=== PATIENT | female | born 1930 | race Caucasian/White ===

== ENCOUNTER 2017-02-09 16:30 | Inpatient (IN) | payer MEDICARE, OTHER ==
[~2017-02-09] VITALS: Ht 165.1 cm; Wt 61.8 kg
[~2017-02-09 16:30] MED LIST: CALC600T12 PO; CHOL100047 PO; FISH1CAP51 PO; HERB1CAP2 PO; LEVO50TA69 PO; LOSA1TAB28 PO; NAPR220T PO; PROC-14 PO; QUET25TA PO; RIVA1PAT3 TD; SIMV20TA2 PO; THIO100C3 PO; UBID100C10 PO; [UNRECOGNIZED DRUG - CODE] PO
--- OUTSIDE RECORDS SUMMARY | 2017-02-09 16:34 | XMS REPORT | Continuity of Care Document ---
Author Author [facility] Organization [facility] Address Unknown Phone Unavailable Support Name Relationship Address Phone NILDA PEDRAZA MD Caregiver [address] [place] [address] Unavailable ASIM RUBI DO Caregiver [address] [place] [address] Unavailable JOHNNY GRIFFITHS Next Of Kin [address] [place] [address] Insurance Providers Guarantor Froilan Griffiths Address [address] [place] [address] Email DENIED/NO TO PT PORT/NO EMAIL Payer [place] Policy Number [id number] Subscriber's Name Froilan Griffiths Relationship 18 Self Group Number [id number] Effective Date 94 Payer Medicare Policy Number [id number] Subscriber's Name Froilan Griffiths Relationship [id number] Self Effective Date 94 Chief Complaint and Reason for Visit Chief Complaint Chest Pain Reason for Visit Abdominal pain Chest pain Problems Active Problems Medical Problem Onset Date Status Abnormal finding on urinalysis Unknown Acute Head injury Unknown Acute Ketonuria Unknown Acute Ketonuria Unknown Acute Mild dehydration Unknown Acute Minor head injury Unknown Acute Scalp laceration Unknown Acute Scalp laceration Unknown Acute Subarachnoid hemorrhage following injury with open intracranial wound Unknown Acute Urinary Tract Infection not otherwise specified Unknown Acute Viral gastroenteritis Unknown Acute Vomiting Unknown Acute Past Problems Medical Problem Onset Date Abdominal pain Unknown Chest pain Unknown Cyclic vomiting syndrome Unknown Medications Current Home Medications Medication Dose Units Route Directions Days Qty Instructions Start Date Calcium Carbonate (Calcium) 600 Mg Tablet 1,200 Mg Oral Daily Cholecalciferol (Vitamin D3) (Vitamin D) 1,000 Unit Tablet 1,000 Unit Oral Daily 02/24/15 Herbal Drugs (Colon Herbal Cleanser) 1 Each Capsule 4 Cap Oral Daily 02/03/16 Levothyroxine Sodium (Synthroid) 50 Mcg Tablet 50 Mcg Oral Before Breakfast 07/08/12 Losartan/Hydrochlorothiazide (Hyzaar 50/12.5 Tablet) 1 Tab Tablet 1 Tab Oral Daily 12/07/11 Naproxen Sodium (Naproxen 220MG) 220 Mg Tablet 220 Mg Oral Twice Daily With Meals 11/04/16 [place]-3 Fatty Acids/Fish Oil ([place] 3 Fish Oil Softgel) 1 Each Capsule. 1 Cap Oral Daily 02/15/15 Prochlorperazine Maleate (Compazine) 10 Mg Tablet 10 Mg Oral Four Times Daily 30 Tablet 11/15/16 Quetiapine Fumarate (Seroquel) 25 Mg Tablet 25 Mg Oral Bedtime Quinine Sulfate 324 Mg Capsule 300 Mg Oral Bedtime 07/08/12 Rivastigmine (Exelon Patch) 9.5 Mg Patch 1 Patch Transderm Daily 07/05/12 Simvastatin (Zocor) 20 Mg Tablet 20 Mg Oral Daily 02/15/15 Thioctic Acid (Alpha Lipoic Acid) 100 Mg Capsule 200 Mg Oral Daily 12/07/11 Ubidecarenone (Coq-10) 100 Mg Capsule 200 Mg Oral Daily 02/24/15 Past Home Medications Medication Directions Ordered Status Ascorbic Acid (Vitamin C) 500 Mg Tablet, 1 - 2 Tab Oral Daily 05/24/10 Discontinued Aspirin 81 Mg Tablet, 81 Mg Oral Daily 05/24/10 Discontinued Calcium/Magnesium (Calcium W/Magnesium Tablet) 1 Tab Tablet, 1 Tab Oral Daily 05/24/10 Discontinued Chromium Picolinate 200 Mcg Tablet, 1 Tab Oral Daily 05/24/10 Discontinued Cyanocobalamin (Vitamin B-12) 500 Mcg Tablet.sa, 1 Tab Sublingual Daily 05/24 Discontinued Fexofenadine Hcl (Patti) 180 Mg Tablet, 300 Mg Oral Daily 12/07/11 Discontinued Folic Acid 0.4 Mg Tablet, 1 Tab Oral Daily 05/24/10 Discontinued Levothyroxine Sodium (Synthroid) 25 Mcg Tablet, 25 Mcg Oral Daily 12/07/11 Discontinued Levothyroxine Sodium (Synthroid) 50 Mcg Tablet, 1 Tab Oral Daily 05/24/10 Discontinued Meclizine Hcl 12.5 Mg Tablet, 12.5 Mg Oral as needed 07/08/12 Discontinued Methocarbamol (Robaxin) 750 Mg Tablet, 750 Mg Dobhoff Prn Every 6HOURS Discontinued [place]-3 Fatty Acids (Fish Oil Concentrate) 1 Cap Capsule, 1 Cap Oral Daily Discontinued Potassium (Potassimin) 75 Mg Tablet, 75 Mg Oral Daily 05/24/10 Discontinued Quetiapine Fumarate 25 Mg Tablet, 1 Tab Oral Bedtime 02/15/15 Discontinued Quinine Sulfate 324 Mg Capsule, 324 Mg Oral Bedtime 12/07/11 Discontinued Rivastigmine Tartrate (Exelon) 4.5 Mg Capsule, 1 Tab Oral Twice A Day Discontinued Simvastatin 20 Mg Tablet, 20 Mg Oral Daily 05/24/10 Discontinued Telmisartan (Micardis) 80 Mg Tablet, 80 Mg Oral Daily 05/24/10 Discontinued Tetracycline Hcl 250 Mg Capsule, 250 Mg Oral Daily 05/24/10 Discontinued Valsartan/Hydrochlorothiazide (Diovan Hct 160/25 Mg Tablet) 1 Tab Tablet, 0.5 Tab Oral Daily 10/02/08 Discontinued Vitamin E 1000 Unit Capsule, 1 Tab Oral Daily 05/24/10 Discontinued Vitamins A And D (Vitamin A And D) 1 Tab Tablet, 1 Tab Oral Daily 05/24/10 Discontinued Social History Social History Problem Response Recorded Date/Time Onset Date Status Chewing Tobacco Status No 01/16/2014 5:10pm Not Applicable Not Applicable Hx Substance Use No 11/15/2016 5:16am Not Applicable Not Applicable Hx Alcohol Use No 11/15/2016 5:16am Not Applicable Not Applicable Has the pt used tobacco in the last 12 months No 07/08/2012 4:17pm Not Applicable Not Applicable Tobacco Usage none 01/16/2014 5:45pm Not Applicable Not Applicable Query Response Start Date Stop Date Smoking Status Never smoker Hospital Discharge Instructions No hospital discharge instructions. Plan of Care Discharge Date 11/15/16 7:15am Disposition 01 DISCHARGED HOME, SELF-CARE Condition at Discharge Improved Instructions/Education Provided High Blood Pressure Nausea and Vomiting-Adult Prescriptions See Medication Section Referrals ASIM RUBI DO Address: [address] [place] [phone] Additional Instructions/Education Follow-up with Dr. Rubi. Return to the emergency department if symptoms worsen. Functional Status No functional status results. Allergies, Adverse Reactions, Alerts Allergen Type Severity Reaction Status Last Updated Penicillin Allergy Unknown HIVES Active 11/15/16 Sulfa (Sulfonamide Antibiotics) Adverse Reaction Unknown DIZZINESS Active 11/15/16 Soy Adverse Reaction Unknown SORE MOUTH Active 11/15/16 Dextrose Allergy Unknown Active 11/15/16 Codeine Adverse Reaction Unknown NAUSEA, DIZZINESS Active 11/15/16 Hydrocodone Allergy Unknown Active 11/15/16 Cephalexin Adverse Reaction Unknown YEAST INFECTION Active 11/15/16 Neomycin Allergy Unknown RASH, ITCHING Active 11/15/16 Bacitracin Allergy Unknown RASH, ITCHING Active 11/15/16 gramicidin D Allergy Unknown RASH, ITCHING Active 11/15/16 Lincomycin Adverse Reaction Unknown COLITIS Active 11/15/16 Polymyxin b Allergy Unknown RASH, ITCHING Active 11/15/16 Moxifloxacin Adverse Reaction Unknown DIZZINESS, NAUSEA Active 11/15/16 Immunizations Query Response on File Recorded Date/Time Hx Influenza Vaccination Y fall 201305/24/15 11:58pm Hx Pneumococcal Vaccination Y 201205/24/15 11:58pm Hx Influenza Vaccination Y fall 201305/24/15 11:58pm Hx Tetanus Diptheria No 03/01/16 11:18am Hx Tetanus Toxoid Vaccination Yes 03/01/16 11:18am Influenza Vaccine Hx fall 201511/15/16 5:16am Tdap Vaccine Hx 201503/01/16 11:18am Vital Signs Acute Vital Signs Vital Response Date/Time Temperature (Fahrenheit) 97.7 deg F (96.8 - 99.1) 11/15/2016 5:13am Temperature (Calculated Celsius) 36.13809 degrees C (36.0 - 37.3) 11/15/2016 5:13am Pulse Rate (adult) 69 bpm (60 - 100) 11/15/2016 8:03am Respiratory Rate 18 breaths/min (10 - 20) 11/15/2016 8:03am O2 Sat by Pulse Oximetry 100 % (90 - 100) 11/15/2016 8:03am Blood Pressure 161/80 mm Hg 11/15/2016 8:03am Height (Feet) 5 feet 11/15/2016 5:13am Height (Inches) 5.00 inches 11/15/2016 5:13am Weight (Kilograms) 70.000 kg 11/15/2016 5:13am Body Mass Index (BMI) 25.0 11/15/2016 5:13am Results Laboratory Results Test Name Result Units Flags Reference Collection Date/Time Result Date/ Time Comments Urine Collection Type CLEANCATCH-MIDSTREAM 11/04/2016 4:50am 2016 4:54am Urine Color YELLOW YELLOW 11/04/2016 4:50am 11/04/2016 4:54am Urine Turbidity CLEAR CLEAR 11/04/2016 4:50am 11/04/2016 4:54am Urine Specific [place] 1.010 L 1.015-1.025 11/04/2016 4:50am 2016 4:54am Urine pH 7.0 5.0-8.0 11/04/2016 4:50am 11/04/2016 4:54am Urine Leukocyte Esterase TRACE A NEGATIVE 11/04/2016 4:50am 2016 4:54am Urine Nitrite NEGATIVE NEGATIVE 11/04/2016 4:50am 11/04/2016 4:54am Urine Protein NEGATIVE NEGATIVE 11/04/2016 4:50am 11/04/2016 4:54am Urine Glucose (UA) NEGATIVE NEGATIVE 11/04/2016 4:50am 11/04/2016 4: 54am Urine Ketones NEGATIVE NEGATIVE 11/04/2016 4:50am 11/04/2016 4:54am Urine Urobilinogen 0.2 EU/DL NORMAL 11/04/2016 4:50am 11/04/2016 4: 54am Urine Bilirubin NEGATIVE NEGATIVE 11/04/2016 4:50am 11/04/2016 4: 54am Urine Blood NEGATIVE NEGATIVE 11/04/2016 4:50am 11/04/2016 4:54am Urinalysis Comment MICROSCOPIC NOT IND. 11/04/2016 4:50am 2016 4:54am White Blood Count 5.2 T/MM3 4.5-11.0 11/15/2016 5:30am 11/15/2016 5: 54am Red Blood Count 3.69 M/MM3 L 4.00-5.20 11/15/2016 5:30am 11/15/2016 5: 54am Hemoglobin 12.3 GM/DL 12-16 11/15/2016 5:30am 11/15/2016 5:54am Hematocrit 36.8 % 36-46 11/15/2016 5:30am 11/15/2016 5:54am Mean Corpuscular Volume 99.7 UM3 80-100 11/15/2016 5:30am 11/15/2016 5: 54am Mean Corpuscular Hemoglobin 33.3 UUG 26-34 11/15/2016 5:302016 5:54am Mean Corpuscular Hemoglobin Concent 33.4 GM/DL 31-37 11/15/2016 5:3011/15/2016 5:54am RDW Standard Deviation 44.5 FL 36.9-50.2 11/15/2016 5:3011/15/2016 5 :54am Platelet Count 168 T/MM3 130-400 11/15/2016 5:3011/15/2016 5:54am Mean Platelet Volume 10.4 UM3 9.4-12.4 11/15/2016 5:3011/15/2016 5: 54am Neutrophils (%) (Auto) 66.2 % H 33-66 11/15/2016 5:11/15/2016 5: 54am Lymphocytes (%) (Auto) 9.8 % L 23-45 11/15/2016 5:3011/15/2016 5: 54am Monocytes (%) (Auto) 8.1 % 0-9.0 11/15/2016 5:3011/15/2016 5:54am Eosinophils (%) (Auto) 14.9 % H 0-4 11/15/2016 5:3011/15/2016 5:54am Basophils (%) (Auto) 0.6 % 0-2 11/15/2016 5:11/15/2016 5:54am Immature Granulocyte % (Auto) 0.4 % 0.0-0.5 11/15/2016 5:302016 5:54am Absolute Neutrophils (auto) 3.4 T/MM3 1.8-7.7 11/15/2016 5:302016 5:54am Absolute Lymphocytes (auto) 0.5 T/MM3 L 1-4.8 11/15/2016 5:302016 5:54am Absolute Monocytes (auto) 0.4 T/MM3 0-0.8 11/15/2016 5:3011/15/2016 5:54am Absolute Eosinophils (auto) 0.8 T/MM3 H 0-0.5 11/15/2016 5:302016 5:54am Absolute Basophils (auto) 0.0 T/MM3 0-0.2 11/15/2016 5:30am 11/15/2016 5:54am Absolute Immature Granulocyte (auto 0.02 T/MM3 0.00-0.03 11/15/2016 5: 3011/15/2016 5:54am Icterus Index < 2 0-7 11/15/2016 5:30am 11/15/2016 5:52am Chemistry Specimen Hemolysis 28 H 0-25 11/15/2016 5:3011/15/2016 5: 52am 26-70: Specimen Exhibited Slight Hemolysis - can falsely elevate K (Potassium) and Urine Protein. Turbidity < 20 0-20 11/15/2016 5:3011/15/2016 5:52am Sodium Level 133 MEQ/L L 134-144 11/15/2016 5:3011/15/2016 5:52am Potassium Level 4.1 MEQ/L 3.6-5 11/15/2016 5:30am 11/15/2016 5:52am Chloride Level 94 MEQ/L L 98-107 11/15/2016 5:3011/15/2016 5:52am Carbon Dioxide Level 27 MEQ/L 22-30 11/15/2016 5:30am 11/15/2016 5: 52am Anion Gap 12 MEQ/L 5-15 11/15/2016 5:3011/15/2016 5:52am Blood Urea Nitrogen 22.0 MG/DL H 7-17 11/15/2016 5:30am 11/15/2016 5: 52am Creatinine 1.0 MG/DL 0.7-1.2 11/15/2016 5:3011/15/2016 5:52am BUN/Creatinine Ratio 22 RATIO 6-26 11/15/2016 5:3011/15/2016 5:52am Glomerular Filtration Rate Calc 52 11/15/2016 5:3011/15/2016 5: 52am Glucose Level 102 MG/DL 65-110 11/15/2016 5:3011/15/2016 5:52am Calculated Osmolality 259 MOSM/KG L 261-280 11/15/2016 5:30am 2016 5:52am Calcium Level 9.5 MG/DL 8.4-10.2 11/15/2016 5:30am 11/15/2016 5:52am Total Bilirubin 0.60 MG/DL 0.20-1.30 11/15/2016 5:30am 11/15/2016 5: 52am Alkaline Phosphatase 63 U/L 38-126 11/15/2016 5:30am 11/15/2016 5:52am Total Protein 7.0 G/DL 6.3-8.2 11/15/2016 5:30am 11/15/2016 5:52am Albumin 3.9 G/DL 3.5-5.0 11/15/2016 5:30am 11/15/2016 5:52am Globulin 3.1 G/DL 2.4-3.6 11/15/2016 5:30am 11/15/2016 5:52am Albumin/Globulin Ratio 1.3 RATIO 1.1-2.2 11/15/2016 5:30am 11/15/2016 5 :52am Aspartate Amino Transf (AST/SGOT) 30 U/L 14-36 11/15/2016 5:30am 2016 5:52am Alanine Aminotransferase (ALT/SGPT) 31 U/L 9-52 11/15/2016 5:30am 11/15 5:52am Troponin I < 0.012 ng/ml 0-0.12 11/15/2016 5:30am 11/15/2016 6:04am Troponin values with a difference of 55% increase from orginal troponin value represent a true biological DELTA value. (%increase Calc=Orginal Troponin value, divided by subsequent Troponin value, multiplied by 100) Lipase 71 U/L 23-300 11/15/2016 5:30am 11/15/2016 5:52am Procedures Procedure Status Date Provider(s) COMP SCREEN MAMMOGRAM ADD-ON Completed 10/23/16 Breast tomosynthesis bi Completed 10/23/16 354851"SCREENING MAMMOGRAPHY, PRODUCING DIRECT DIGITAL IMAGE Completed Routine venipuncture Completed 11/04/16 Comprehen metabolic panel Completed 11/04/16 Urinalysis auto w/o scope Completed 11/04/16 Assay of troponin quant Completed 11/04/16 Complete cbc w/auto diff wbc Completed 11/04/16 Electrocardiogram tracing Completed 11/04/16 Hydration iv infusion init Completed 11/04/16 Emergency dept visit Completed 11/04/16 048217"INFUSION, NORMAL SALINE SOLUTION , 1000 CC" Completed 11/04/16 Encounters Encounter Location Arrival/Admit Date Discharge/Depart Date Attending Provider Departed Emergency Room [facility] 11/15/16 4:57am 11/15/16 7: 15am NILDA PEDRAZA MD Departed Emergency Room [facility] 11/04/16 2:10am 11/04/16 5: 25am ASIM GALVAN MD Registered Clinic [facility] 10/23/16 1:04pm LAURIE ANAND Recent Diagnosis
--- OUTSIDE RECORDS SUMMARY | 2017-02-09 16:34 | XMS REPORT | Continuity of Care Document ---
Author Author [facility] LIVE Organization [facility] LIVE Address Unknown Phone Unavailable Support Name Relationship Address Phone BENTON HERNANDEZ MD Caregiver [address] [place] [address] [place] [phone] ASIM RUBI DO Caregiver [facility] MEDICINE [address] [facility] [address] [place] [phone] JOHNNY GRIFFITHS Next Of Kin [address] [place], [place] [id number] Insurance Providers Payer Name Policy Number Subscriber Name Relationship Medicare [id number] Froilan Griffiths 17 Self [place] [id number] Froilan Griffiths 17 Self Advance Directives Directive Response Recorded Date/Time Advanced Directives Type None 02/15/15 3:03pm Problems Medical Problems Problem Onset Date Status Urinary Tract Infection not otherwise specified Unknown Active Ketonuria Unknown Active Mild dehydration Unknown Active Vomiting Unknown Active Ketonuria Unknown Active Medications Medication Dose Route Sig Days/Qty Instructions Order Date Discontinued Date Status Calcium/Magnesium 1 Tab PO DAILY 05/24/10 12/07/11 Discontinued Chromium Picolinate 1 Tab PO DAILY 05/24/10 12/07/11 Discontinued [Colon Clenz] 4 Tab PO NEEDED buys form the [employer] Active Valsartan/Hydrochlorothiazide 0.5 Tab PO DAILY 10/02/08 10/30/09 Discontinued Rivastigmine Tartrate 1 Tab PO TWICE A DAY 05/24/10 07/05/12 Discontinued [place]-3 Fatty Acids 1 Cap PO DAILY 05/24/10 12/07/11 Discontinued Folic Acid 1 Tab PO DAILY 05/24/10 12/07/11 Discontinued Levothyroxine Sodium 1 Tab PO DAILY 05/24/10 12/07/11 Discontinued Vitamins A And D 1 Tab PO DAILY 05/24/10 12/07/11 Discontinued Cyanocobalamin 1 Tab SL DAILY 05/24/10 12/07/11 Discontinued Ascorbic Acid 1 - 2 Tab PO DAILY 05/24/10 12/07/11 Discontinued [Vitamin E] 1 Tab PO DAILY 05/24/10 12/07/11 Discontinued Aspirin 81 Mg PO DAILY 05/24/10 12/07/11 Discontinued Telmisartan 80 Mg PO DAILY 05/24/10 12/07/11 Discontinued Potassium 75 Mg PO DAILY 05/24/10 12/07/11 Discontinued Simvastatin 20 Mg PO DAILY 05/24/10 06/26/12 Discontinued Tetracycline Hcl 250 Mg PO DAILY 05/24/10 12/07/11 Discontinued Levothyroxine Sodium 25 Mcg PO DAILY 12/07/11 07/08/12 Discontinued Losartan/Hydrochlorothiazide 1 Tab PO DAILY 12/07/11 Active Fexofenadine Hcl 300 Mg PO DAILY 12/07/11 07/04/13 Discontinued Quinine Sulfate 324 Mg PO BEDTIME 12/07/11 07/08/12 Discontinued Thioctic Acid 2 Tab PO DAILY 12/07/11 Active Methocarbamol 750 Mg PRN EVERY 6HOURS 06/26/12 07/08/12 Discontinued Rivastigmine 1 Tab TD DAILY 07/05/12 Active Levothyroxine Sodium 1 Tab PO DAILY 07/08/12 Active Quinine Sulfate 1 Tab PO BEDTIME 07/08/12 Active Meclizine Hcl 12.5 Mg PO PRN 07/08/12 07/04/13 Discontinued Quetiapine Fumarate 1 Tab PO BEDTIME 02/15/15 Active Simvastatin 1 Tab PO BEDTIME 02/15/15 Active [place]-3 Fatty Acids/Fish Oil 1 Cap PO DAILY 02/15/15 Active Aspirin 1 Tab PO DAILY 02/15/15 Active Calcium Carbonate/Vitamin D3 1 Tab PO DAILY 02/15/15 Active Ondansetron 4 Mg PO Q6H/0300,0900,1500,2100 PRN NAUSEA &/OR VOMITING 20 Qty 02/15/15 Active Social History Social History Problem Response Recorded Date/Time Chewing Tobacco Status No 01/16/2014 5:10pm Hx Substance Use No 02/15/2015 3:44pm Hx Alcohol Use No 02/15/2015 3:44pm Has the pt used tobacco in the last 12 months No 07/08/2012 4:17pm Tobacco Usage none 01/16/2014 5:45pm Query Response Start Date Stop Date Smoking Status Never smoker Hospital Discharge Instructions No hospital discharge instructions. Plan of Care No plan of care. Functional Status Query Response Date Recorded Physical Hygiene Self February 15, 2015 3:44pm Disabilities None February 15, 2015 3:44pm Devices Used Glasses February 15, 2015 3:44pm Dressing Self February 15, 2015 3:44pm Ambulation Self February 15, 2015 3:44pm Diet Self February 15, 2015 3:44pm Mental Status Alert Oriented February 15, 2015 5:30pm Disabilities None February 15, 2015 3:44pm Devices Used Glasses February 15, 2015 3:44pm Physical Hygiene Self February 15, 2015 3:44pm Dressing Self February 15, 2015 3:44pm Ambulation Self February 15, 2015 3:44pm Diet Self February 15, 2015 3:44pm Allergies, Adverse Reactions, Alerts Allergen Type Severity Reaction Status Last Updated Penicillin Allergy Unknown HIVES Active 07/05/12 Sulfa (Sulfonamide Antibiotics) Adverse Reaction Unknown DIZZINESS Active 07/05/12 Soy Adverse Reaction Unknown SORE MOUTH Active 07/04/13 Codeine Adverse Reaction Unknown NAUSEA, DIZZINESS Active 07/05/12 Hydrocodone Allergy Unknown Active 07/05/12 Cephalexin Adverse Reaction Unknown YEAST INFECTION Active 07/05/12 Neomycin Allergy Unknown RASH, ITCHING Active 07/05/12 Bacitracin Allergy Unknown RASH, ITCHING Active 07/05/12 gramicidin D Allergy Unknown RASH, ITCHING Active 07/05/12 Lincomycin Adverse Reaction Unknown COLITIS Active 07/05/12 Polymyxin b Allergy Unknown RASH, ITCHING Active 07/05/12 Moxifloxacin Adverse Reaction Unknown DIZZINESS, NAUSEA Active 07/04/13 Immunizations Name Given Type Hx Influenza Vaccination Y FALL 2013 Historical Hx Pneumococcal Vaccination Y CURRENT Historical Hx Influenza Vaccination Y FALL 2013 Historical Hx Tetanus Diptheria Y GIVEN IN ER TODAY 10/02/08 AT 2008 IN LEFT ARM Historical Vital Signs Acute Vital Signs Vital Response Date/Time Temperature (Fahrenheit) 96.8 deg F (96.8 - 99.1) Temperature (Calculated Celsius) 36.33476 degrees C (36.0 - 37.3) Pulse Rate (adult) 78 bpm (60 - 100) Respiratory Rate 20 breaths/min (10 - 20) O2 Sat by Pulse Oximetry 98 % (90 - 100) Blood Pressure 162/72 mm Hg Height 5 ft 5 in Weight 150 lb Body Mass Index 25.0 kg/m^2 Results Test Source Date Result Interp. Ref. Range Comments Activated Partial Thromboplast Time July 05, 2012 6:30am 23.2 SEC L 24-36 Alanine Aminotransferase (ALT/SGPT) February 15, 2015 3:30pm 34 U/L N 9-52 Albumin February 15, 2015 3:30pm 4.2 G/DL N 3.5-5.0 Albumin/Globulin Ratio February 15, 2015 3:30pm 1.2 RATIO N 1.1-2.2 Alkaline Phosphatase February 15, 2015 3:30pm 58 U/L N 38-126 Amylase Level February 15, 2015 3:30pm 80 U/L N 30-110 Anion Gap February 15, 2015 3:30pm 12 MEQ/L N 5-15 Aspartate Amino Transf (AST/SGOT) February 15, 2015 3:30pm 41 U/L H 14-36 B-Type Natriuretic Peptide October 30, 2009 3:35am 46 PG/ML N 15-100 BUN/Creatinine Ratio February 15, 2015 3:30pm 24 RATIO N 6-26 Band Neutrophils # February 15, 2015 3:30pm 0.2 T/MM3 - Band Neutrophils % February 15, 2015 3:30pm 2.0 % DN 0-6 Basophils # (Auto) July 05, 2012 6:30am 0.0 T/MM3 N 0-0.2 Basophils # (Manual) October 30, 2009 3:35am 0.2 T/MM3 N 0-0.2 Basophils % (Manual) October 30, 2009 3:35am 1.0 % N 0-2 Basophils (%) (Auto) July 05, 2012 6:30am 0.4 % N 0-2 Blood Urea Nitrogen February 15, 2015 3:30pm 22.0 MG/DL H 7-17 Calcium Level February 15, 2015 3:30pm 9.2 MG/DL N 8.4-10.2 Calculated Osmolality February 15, 2015 3:30pm 274 MOSM/KG N 261-280 Carbon Dioxide Level February 15, 2015 3:30pm 27 MEQ/L N 22-30 Chemistry Specimen Hemolysis February 15, 2015 3:30pm 20 N 0-25 0-25: No Hemolysis.26-70: Slight Hemolysis - can falsely elevate K and Urine Protein. 71-285: Moderate Hemolysis - can falsely elevate K, Troponin I, CA 19-9, PTH, CSF GLucose, and Urine Protein, and can falsely decrease Phenytoin. 286-999: Gross Hemolysis - can falsely elevate K, Troponin I, CA 19-9, PTH, CSF Glucose, and Urine Protine, and can falsely decrease Phenytoin. Recommend specimen recollection. Chloride Level February 15, 2015 3:30pm 102 MEQ/L N 98-107 Conjugated Bilirubin December 07, 2011 12:54pm 0.00 MG/DL N 0.00-0.30 Creatinine February 15, 2015 3:30pm 0.9 MG/DL N 0.7-1.2 EKG October 30, 2009 3:35am Complete - Eosinophils # (Auto) July 05, 2012 6:30am 0.3 T/MM3 N 0-0.5 Eosinophils (%) (Auto) July 05, 2012 6:30am 5.2 % H 0-4 Globulin February 15, 2015 3:30pm 3.5 G/DL N 2.4-3.6 Glomerular Filtration Rate Calc February 15, 2015 3:30pm 59 - Glucose Level February 15, 2015 3:30pm 96 MG/DL N 65-110 Hematocrit February 15, 2015 3:30pm 42.7 % N 36-46 Hemoglobin February 15, 2015 3:30pm 14.2 GM/DL N 12-16 Icterus Index February 15, 2015 3:30pm < 2 0-7 Immature Granulocyte # (Auto) July 05, 2012 6:30am 0.02 T/MM3 N 0.00-0.03 Immature Granulocyte % (Auto) July 05, 2012 6:30am 0.4 % N 0.0-0.5 Lab Scanned Report December 31, 2013 9:34pm LAB TEST FORM REQUEST [id number] - Lipase February 15, 2015 3:30pm 152 U/L N 23-300 Lymphocytes # (Auto) July 05, 2012 6:30am 1.0 T/MM3 N 1-4.8 Lymphocytes # (Manual) February 15, 2015 3:30pm 0.2 T/MM3 L 1-4.8 Lymphocytes % (Manual) February 15, 2015 3:30pm 2.0 % L 23-45 Lymphocytes (%) (Auto) July 05, 2012 6:30am 19.7 % L 23-45 Mean Corpuscular Hemoglobin February 15, 2015 3:30pm 33.9 UUG N 26-34 Mean Corpuscular Hemoglobin Concent February 15, 2015 3:30pm 33.3 GM/DL N 31-37 Mean Corpuscular Volume February 15, 2015 3:30pm 101.9 UM3 H 80-100 Mean Platelet Volume February 15, 2015 3:30pm 9.3 UM3 L 9.4-12.4 Monocytes # (Auto) July 05, 2012 6:30am 0.6 T/MM3 N 0-0.8 Monocytes # (Manual) February 15, 2015 3:30pm 0.3 T/MM3 N 0-0.8 Monocytes % (Manual) February 15, 2015 3:30pm 3.0 % N 0-9.0 Monocytes (%) (Auto) July 05, 2012 6:30am 13.3 % H 0-9.0 Neutrophils # (Auto) July 05, 2012 6:30am 3.0 T/MM3 N 1.8-7.7 Neutrophils # (Manual) February 15, 2015 3:30pm 9.5 T/MM3 H 1.8-7.7 Neutrophils % (Manual) February 15, 2015 3:30pm 93.0 % H 33-66 Neutrophils (%) (Auto) July 05, 2012 6:30am 61.0 % N 33-66 Platelet Count February 15, 2015 3:30pm 238 T/MM3 N 130-400 Potassium Level February 15, 2015 3:30pm 4.1 MEQ/L N 3.6-5 Prothromb Time International Ratio July 05, 2012 6:30am 0.84 L 0.86 -1.10 THERAPUTIC RANGE=2.00-3.00 FOR ANTI-THROMBOSIS THERAPUTIC RANGE=2.50- 3.50 FOR IMPLANTED VALVE RDW Standard Deviation February 15, 2015 3:30pm 45.5 FL N 36.9-50.2 Red Blood Count February 15, 2015 3:30pm 4.19 M/MM3 N 4.00-5.20 Red Cell Morphology Comment February 15, 2015 3:30pm Normal - Sodium Level February 15, 2015 3:30pm 141 MEQ/L N 134-144 Tests Not Done October 30, 2009 4:30am Not done - Has specimen been collected/obtained? Y Total Bilirubin February 15, 2015 3:30pm 0.90 MG/DL N 0.20-1.30 Total Protein February 15, 2015 3:30pm 7.7 G/DL N 6.3-8.2 Troponin I July 05, 2012 6:30am < 0.012 ng/ml 0-0.12 Turbidity February 15, 2015 3:30pm < 20 0-20 Unconjugated Bilirubin December 07, 2011 12:54pm 0.20 MG/DL N 0.00-1.10 Urinalysis Comment February 15, 2015 5:00pm Microscopic not ind. - Has specimen been collected/obtained? Y Urine Bacteria July 04, 2013 3:23pm Trace H - Has specimen been collected/obtained? Y Urine Bilirubin February 15, 2015 5:00pm Negative - Has specimen been collected/obtained? Y Urine Blood February 15, 2015 5:00pm Negative - Has specimen been collected/obtained? Y Urine Collection Type February 15, 2015 5:00pm Cleancatch-midstream - Has specimen been collected/obtained? Y Urine Color February 15, 2015 5:00pm Yellow - Has specimen been collected/obtained? Y Urine Culture Indicated July 04, 2013 3:23pm Cult reflexed &setup - Has specimen been collected/obtained? Y Urine Glucose (UA) February 15, 2015 5:00pm Negative - Has specimen been collected/obtained? Y Urine Ketones February 15, 2015 5:00pm Trace H - Has specimen been collected/obtained? Y Urine Leukocyte Esterase February 15, 2015 5:00pm Negative - Has specimen been collected/obtained? Y Urine Microscopic Not Indicated July 05, 2012 6:55am Not indicated - Has specimen been collected/obtained? Y Urine Nitrite February 15, 2015 5:00pm Negative - Has specimen been collected/obtained? Y Urine Protein February 15, 2015 5:00pm Negative - Has specimen been collected/obtained? Y Urine RBC July 04, 2013 3:23pm Tntc /HPF H - Has specimen been collected/obtained? Y Urine Specific [place] February 15, 2015 5:00pm >=1.030 H - Has specimen been collected/obtained? Y Urine Squamous Epithelial Cells July 04, 2013 3:23pm None seen - Has specimen been collected/obtained? Y Urine Turbidity February 15, 2015 5:00pm Clear - Has specimen been collected/obtained? Y Urine Urobilinogen February 15, 2015 5:00pm 0.2 EU/DL - Has specimen been collected/obtained? Y Urine WBC July 04, 2013 3:23pm 30-50 /HPF H - Has specimen been collected/obtained? Y Urine pH February 15, 2015 5:00pm 6.0 - Has specimen been collected/ obtained? Y White Blood Count February 15, 2015 3:30pm 10.2 T/MM3 N 4.5-11.0 Urine Culture Urine, Clean Catch-Midstream July 04, 2013 3:41pm Mixed [place] Prob. Contaminants Name: FROILAN GRIFFITHS Unit #: [id number] : 1930 Sex: F Loc / Svc: [facility] DOS: 01/28/15 Signed Report #: [id number] DIAGNOSTIC IMAGING REPORT TYPE OF EXAM: EPIDURAL INJ.SPINE W FLUO&CATH Dictated By: OLGA FULLER MD Indication: ITS.REASON: 724.02 LUMBAR SPINAL STENOSIS; 724.5 BACKACHE EPIDURAL INJ.SPINE W FLUO CATH: Comparison: 11/18/2014 Findings: The procedure was explained to the patient and both verbal and written consent were obtained. The skin over the lumbar spine was prepped and draped in the usual sterile fashion. Following local anesthetic placement a 22-gauge spinal needle was placed into the epidural space under fluoroscopic guidance at the L3-L4 level, left of the midline. Once it was confirmed at the needle was in the epidural space with a small amount of contrast, 5 cc of Omnipaque 180 , 120 mg of Depo-Medrol was infused into the epidural space under fluoroscopic guidance. The needle was removed and manual pressure was held until adequate hemostasis was achieved. The patient tolerated the procedure well and there are no immediate complications. Impression 1. Status post successful lumbar epidural as described above under fluoroscopic guidance. . Procedures Procedure Status Date Provider(s) INJECT SPINE LUMBAR/SACRAL completed 11/18/14 FLUOROGUIDE FOR SPINE INJECT completed 11/18/14 825255"INJECTION, METHYLPREDNISOLONE ACETATE, 40 MG" completed 11/18/14"LOW OSMOLAR CONTRAST MATERIAL, 100-199 MG/ML IODINE C completed INJECT SPINE LUMBAR/SACRAL completed 01/28/15 FLUOROGUIDE FOR SPINE INJECT completed 01/28/15"INJECTION, METHYLPREDNISOLONE ACETATE, 40 MG" completed 01/28/15"LOW OSMOLAR CONTRAST MATERIAL, 100-199 MG/ML IODINE C completed Encounters Encounter Location Date/Time Departed Emergency Room [facility] 02/15/15 3:01pm Registered Clinic [facility] 01/28/15 9:18am Registered [facility] 11/18/14 12:20pm Recent Diagnosis
[2017-02-09] MEDS ORDERED: PANT40TA27 PO (16:49)
[2017-02-09] MEDS ORDERED: NAPR375T4 PO (16:49)
[2017-02-09] MEDS ORDERED: TRAM50TA4 PO (16:49)
[2017-02-09] MEDS ORDERED: ACET-62 PO (16:58)
--- OUTSIDE RECORDS SUMMARY | 2017-02-09 17:07 | XMS REPORT | Continuity of Care Document ---
Author Author [facility] LIVE Organization [facility] LIVE Address Unknown Phone Unavailable Support Name Relationship Address Phone BENTON HERNANDEZ MD Caregiver [address] [place] [address] [place] [phone] ASIM RUBI DO Caregiver [facility] MEDIC[facility] [address] [facility] [address] [place] [phone] JOHNNY GRIFFITHS Next Of Kin [address] [place], [place] [id number] Insurance Providers Payer Name Policy Number Subscriber Name Relationship Medicare [id number] Froilan Griffiths 17 Self [place] [id number] Froilan Griffiths 17 Self Advance Directives Directive [...] 4 Tab PO NEEDED buys form the [employer] Active Valsartan/Hydrochlorothiazide 0.5 Tab PO DAILY 10/02/08 10/30/09 Discontinued Rivastigmine Tartrate 1 Tab PO TWICE A DAY 05/24/10 07/05/12 Discontinued [place]-3 Fatty Acids 1 Cap PO DAILY 05/24/10 [...] Simvastatin 1 Tab PO BEDTIME 02/15/15 Active [place]-3 Fatty Acids/Fish Oil 1 Cap PO DAILY [...] F (96.8 - 99.1) Temperature (Calculated Celsius) 36.12714 degrees C (36.0 - 37.3) Pulse Rate [...] 31, 2013 9:34pm LAB TEST FORM REQUEST [id number] - Lipase February 15, 2015 3:30pm 152 [...] Has specimen been collected/obtained? Y Urine Specific [place] February 15, 2015 5:00pm >=1.030 H - [...] Prob. Contaminants Name: FROILAN GRIFFITHS Unit #: [id number] : 1930 Sex: F Loc / Svc: [facility] DOS: 01/28/15 Signed Report #: [id number] DIAGNOSTIC IMAGING REPORT TYPE OF EXAM: EPIDURAL [...] 11/18/14 FLUOROGUIDE FOR SPINE INJECT completed 11/18/14 [id number]"INJECTION, METHYLPREDNISOLONE ACETATE, 40 MG" completed 11/18/14"LOW OSMOLAR CONTRAST MATERIAL, 100-199 MG/ML IODINE C completed INJECT SPINE LUMBAR/SACRAL completed 01/28/15 FLUOROGUIDE FOR SPINE INJECT completed 01/28/15"INJECTION, METHYLPREDNISOLONE ACETATE, 40 MG" completed 01/28/15"LOW OSMOLAR CONTRAST MATERIAL, 100-199 MG/ML IODINE C completed Encounters Encounter Location Date/Time Departed Emergency Room [facility] 02/15/15 3:01pm Registered Clinic [facility] 01/28/15 9:18am Registered [facility] 11/18/14 12:20pm Recent Diagnosis
[2017-02-09 17:36] LABS: HGB - HEMOGLOBIN 12.3 GM/DL (12-16); MEAN CORPUSCULAR HGB 33.5 UUG (26-34); MEAN CORPUSCULAR HGB CONC(MCHC 33.2 GM/DL (31-37); MEAN CORPUSCULAR VOLUME 100.8 UM3 (80-100); MEAN PLATELET VOLUME 8.9 UM3 (9.4-12.4); RED BLOOD COUNT 3.67 M/MM3 (4.00-5.20); WBC - WHITE BLOOD COUNT 10.1 T/MM3 (4.5-11.0)
[2017-02-09 17:46] LABS: ALBUMIN 3.9 G/DL (3.5-5.0); ALBUMIN/GLOBULIN RATIO 1.1 RATIO (1.1-2.2); ALKALINE PHOSPHATASE 80 U/L (38-126); ALT (SGPT) 26 U/L (9-52); ANION GAP 13 MEQ/L (5-15); AST (SGOT) 35 U/L (14-36); BUN/CREATININE RATIO 18 RATIO (6-26); CALCIUM 9.5 MG/DL (8.4-10.2); CHLORIDE 98 MEQ/L (98-107); CO2 - CARBON DIOXIDE 26 MEQ/L (22-30); CREATININE 1.2 MG/DL (0.7-1.2); GLOMERULAR FILTRATION RATE 42; GLUCOSE 103 MG/DL (65-110); POTASSIUM 4.3 MEQ/L (3.6-5); SODIUM 137 MEQ/L (134-144); TOTAL PROTEIN 7.4 G/DL (6.3-8.2)
[2017-02-09 18:03] LABS: BLOOD, URINE NEGATIVE (NEGATIVE); COLOR,URINE YELLOW (YELLOW); LEUKOCYTE ESTERASE ,URINE NEGATIVE (NEGATIVE); NITRITE,URINE NEGATIVE (NEGATIVE); UROBILINOGEN,URINE 0.2 EU/DL (NORMAL)
--- NOTE | 2017-02-09 18:07 | ERPDOC ---
Departure Disposition Decision Date: Feb 09, 2017 Disposition Decision Time: 18:10 Disposition: 02 TO [facility] Impression Impression Impression: Primary Impression: Altered mental state Altered mental status type: unspecified Qualified Codes: R41.82 - Altered mental status, unspecified Severity: Mild Condition: Improved Seen By: Physician only Referrals: ASIM RUBI DO (Family) Problems/Meds/Labs Reviewed?: Yes Medications reviewed and manag: Yes Follow up care ordered?: Yes Mental Status: Alert, Oriented HPI - General Medical General Chief Complaint: Altered Mental Status Stated Complaint: ALTERED LEVEL OF CONSCIOUSNESS Time Seen by Provider: 16:40 Source: patient, family Exam Limitations: no limitations HPI - General Medical Initial Comments 87-year-old female presents to the emergency department with a chief complaint of an unresponsive episode at home earlier today at approximately 3 PM. Patient was sitting in the kitchen at table and was noted to have her head down on the table and not be responding to family members. This episode was brief in nature. She did not fall or suffer any trauma during the incident. Patient did take a 50 mg Ultram, 500 mg tylenol tablet, and a naprosyn prior to the incident. Patient has returned to baseline mental status. Patient denies any pain or discomfort. No other complaints or associated symptoms. Patient was at home when the incident occurred. Symptoms have resolved prior to arrival to the emergency department. She does not note any exacerbating or remitting factors. Occurred At: home Onset: other (Resolved.) Allergies: Coded Allergies: Penicillins (Verified Allergy, Unknown, HIVES, 11/15/16) bacitracin (Verified Allergy, Unknown, RASH, ITCHING, 11/15/16) dextrose (Verified Allergy, Unknown, 11/15/16) gramicidin D (Verified Allergy, Unknown, RASH, ITCHING, 11/15/16) hydrocodone (Verified Allergy, Unknown, 11/15/16) neomycin (Verified Allergy, Unknown, RASH, ITCHING, 11/15/16) polymyxin B (Verified Allergy, Unknown, RASH, ITCHING, 11/15/16) Soy (Verified Adverse Reaction, Unknown, SORE MOUTH, 11/15/16) Sulfa (Sulfonamide Antibiotics) (Verified Adverse Reaction, Unknown, DIZZINESS, 11/15/16) cephalexin (Verified Adverse Reaction, Unknown, YEAST INFECTION, 11/15/16) codeine (Verified Adverse Reaction, Unknown, NAUSEA, DIZZINESS, 11/15/16) lincomycin (Verified Adverse Reaction, Unknown, COLITIS, 11/15/16) moxifloxacin (Verified Adverse Reaction, Unknown, DIZZINESS, NAUSEA, ) Past History Past Medical History Metabolic: hypercholesterolemia, hypothyroidism ENMT: cataracts Cardiac: CHF, other GI: pancreatitis Female: UTI Musculoskeletal: back pain Psychological: dementia Surgical History General: back, colonoscopy, other Reproductive/: hysterectomy Joint: shoulder Family History Family PMH: FOUND: diabetes Vaccines Hx Influenza Vaccination: Yes (fall 2013) Hx Pneumococcal Vaccination: Yes (2012) Hx Tetanus Diptheria: No Social History Smoking Status: Never smoker Does patient use chewing tobac: No Second Hand Exposure: No Substance Use Type: does not use Alcohol Intake: none Sexuality: male partner Review of Systems Constitutional Constitutional: DENIES: chills, fever Eyes General: DENIES: erythema, exudate Lids/Accessories: DENIES: erythema, swelling Vision: DENIES: acuity, blurring ENMT Ears: DENIES: drainage, erythema, pain Hearing: DENIES: hearing loss Balance: DENIES: ataxia, falling to one side Sinuses: DENIES: congestion, pain Nose: DENIES: nosebleeds, pain Mouth/Throat: DENIES: painful swallowing, sore throat Teeth: DENIES: pain Jaw: DENIES: pain Cardiovascular Cardiac: DENIES: chest pain, dyspnea on exertion Rhythm/Rate: DENIES: irregular beat, palpitations Vascular: DENIES: pedal edema, unilateral swelling Pulmonary Respiratory: DENIES: cough, dyspnea, pleuritic chest pain, sputum GI Upper Abdomen: DENIES: nausea, pain, vomiting Lower Abdomen: DENIES: diarrhea, pain General: DENIES: dysuria, frequency Musculoskeletal General: DENIES: joint pain, tenderness Integumentary Skin: DENIES: itching, rash Neurological General: DENIES: headache, numbness, weakness Psychiatric Psychiatric: DENIES: emotional instability, suicidal ideation/attempt Endocrine Endocrine: DENIES: polydipsia, polyphagia Hematologic/Lymphatic Hematologic/Lymphatic: DENIES: frequent nosebleeds, lymphadenopathy Allergic/Immunological Allergic/Immunoligical: DENIES: allergic reactions, hives Physical Exam General General Nourishment: well nourished, well developed, appears stated age, no acute distress, adult General Body Habitus: well groomed Vitals and Pain First Documented Vital Signs Date Time Temp Pulse Resp B/P Pulse Ox O2 Delivery O2 Flow Rate FiO2 02/09/17 16:30 97.6 67 16 150/67 100 Room Air Weight: Kilograms: 63.100 Height (feet): 5 Height (inches): 4.00 Triage Pain Scale: RN VS reviewed by Provider: Yes Normal Exams: Head: Normocephalic w/o trauma Eyes: Pupils are PERRLA w/ EOMI, No scleral icterus, irritation, or foreign bodies noted ENMT: No facial trauma, nasal exudates, pharyngeal erythema, or exudates are noted Dental: No fractured, loose, or missing teeth noted Neck: Full range of motion, without adenopathy, JVD, bruits or thyromegaly Chest/Resp: Clear all morales, with good airflow, and symmetry bilaterally CV: Regular rate and rhythm, without murmur or gallop, Pulses 2+ all extremities, capillary refill, <2 seconds all ext., no pedal edema noted Abdomen: Bowel sounds positive, soft, non-tender, non-distended, no hepatosplenomegaly, masses or bruits noted Lymphatic: No lymphadenopathy, or lymphedema noted Musculoskeletal: No tenderness, or deformity noted, good range of motion, all extremities Integumentary: No rashes, hives, or bruising noted, hair and nails, without abnormality Neurologic: Patient is alert, and oriented, cranial nerves, motor/sensory/ cerebellar, exams w/o gross deficits, to observation Psychiatric: Patient exhibits, appropriate attention, emotion and affect Differential Diagnoses Considering: Hypo/Hyperglycemia, Medication Effect, Metabolic (Syncope ), Other Progress Results/Orders Orders Procedure Category Date Status Time Cbc W/Auto LAB 02/09/17 Complete Diff-Reflex Manual Cmp - Comprehensive LAB 02/09/17 Complete Metabolic Troponin I W LAB 02/09/17 Complete Hemolysis Index Ua, Dip Wreflex LAB 02/09/17 Complete [employer] 16:41 Drug Screen LAB 02/09/17 Complete Urine-Test At [facility] [place] 16:41 Ct Head W/O Contrast CT 02/09/17 Taken 16:41 Chest 1 View RAD 02/09/17 Taken 16:41 EKG EKG 02/09/[address] In Facility: ED ADM 02/09/17 Transmitted 18:36 Normal Saline (Ns) PHA 02/09/17 In Process 18:45 Prolactin LAB 02/09/17 Transmitted 18:43 Lab Results Laboratory Tests Test 02/09/17 17:27 02/09/17 17:55 White Blood Count 10.1T/MM3 Red Blood Count 3.67M/MM3 Hemoglobin 12.3GM/DL Hematocrit 37.0% Mean Corpuscular Volume 100.8UM3 Mean Corpuscular Hemoglobin 33.5UUG Mean Corpuscular Hemoglobin Concent 33.2GM/DL RDW Standard Deviation 43.8FL Platelet Count 324T/MM3 Mean Platelet Volume 8.9UM3 Immature Granulocyte % (Auto) % Neutrophils (%) (Auto) % Lymphocytes (%) (Auto) % Monocytes (%) (Auto) % Eosinophils (%) (Auto) % Basophils (%) (Auto) % Absolute Immature Granulocyte (auto T/MM3 Absolute Neutrophils (auto) T/MM3 Absolute Lymphocytes (auto) T/MM3 Absolute Monocytes (auto) T/MM3 Absolute Eosinophils (auto) T/MM3 Absolute Basophils (auto) T/MM3 Neutrophils % (Manual) 83.0% Lymphocytes % (Manual) 5.0% Monocytes % (Manual) 5.0% Eosinophils % (Manual) 6.0% Basophils % (Manual) 1.0% Absolute Neutrophils (Manual) 8.4T/MM3 Lymphocytes # (Manual) 0.5T/MM3 Monocytes # (Manual) 0.5T/MM3 Eosinophils # (Manual) 0.6T/MM3 Basophils # (Manual) 0.1T/MM3 Red Cell Morphology Comment Normal Turbidity < 20 Sodium Level 137MEQ/L Potassium Level 4.3MEQ/L Chloride Level 98MEQ/L Carbon Dioxide Level 26MEQ/L Anion Gap 13MEQ/L Blood Urea Nitrogen 21.0MG/DL Creatinine 1.2MG/DL Glomerular Filtration Rate Calc 42 BUN/Creatinine Ratio 18RATIO Glucose Level 103MG/DL Calculated Osmolality 267MOSM/KG Calcium Level 9.5MG/DL Total Bilirubin 0.80MG/DL Icterus Index < 2 Aspartate Amino Transf (AST/SGOT) 35U/L Alanine Aminotransferase (ALT/SGPT) 26U/L Alkaline Phosphatase 80U/L Troponin I < 0.012ng/ml Total Protein 7.4G/DL Albumin 3.9G/DL Globulin 3.5G/DL Albumin/Globulin Ratio 1.1RATIO Chemistry Specimen Hemolysis < 15 Urine Collection Type Cleancatch-midstream Urine Color Yellow Urine Turbidity Clear Urine pH 7.0 Urine Specific [place] 1.020 Urine Protein Negative Urine Glucose (UA) Negative Urine Ketones Negative Urine Blood Negative Urine Nitrite Negative Urine Bilirubin Negative Urine Urobilinogen 0.2EU/DL Urine Leukocyte Esterase Negative Urinalysis Comment Microscopic not ind. Urine Opiates Screen NegativeNG/ML Urine Oxycodone Screen NegativeNG/ML Urine Methadone Screen NegativeNG/ML Urine Propoxyphene Screen NegativeNG/ML Urine Barbiturates Screen NegativeNG/ML Urine Tricyclic Antidepressants NegativeNG/ML Urine Phencyclidine Screen NegativeNG/ML Urine Amphetamines Screen NegativeNG/ML Urine Methamphetamines Screen NegativeNG/ML Urine Benzodiazepines Screen NegativeNG/ML Urine Cocaine Screen NegativeNG/ML Urine Cannabinoids Screen NegativeNG/ML Medications Current ED Medications Sodium Chloride (NS) 500 ml @ 999 mls/hr Q31M ONCE IV ; Start 02/09/17 at 18:45 ; Stop 02/09/17 at 19:15 Progress Progress Labs/imaging were discussed in detail with the patient and questions are answered. Patient is given gentle IV hydration. Patient has returned to baseline mental status. Patient was noted to have 2 of her rivastigmine patches on her skin instead of the one she was prescribed. It is most likely that the patient's symptoms are secondary to the increased amount of rivastigmine in the patient's system. Patient will be observed by the hospitalist service in the care of Dr. Gutierres due to the episode of unresponsiveness. The witnessed episode was witnessed by her and his ability to describe the episode is poor. She will be admitted in observation status for further evaluation and treatment. Patient and family are in agreement with the current plan of management. EKG EKG : Rate: 60-100 Rhythm: sinus [place]: normal QRS: normal Intervals: [address]/T: normal Interpreted by: signing physician Xray Xray : Xray: CXR Portable Interpretation: Normal, Interpreted by Me CT CT : CT: Head no contrast Interpretation: Normal, Faxed Report WINDY GARCIA DO Feb 09, 2017 18:07
[2017-02-09 18:11] LABS: BASOPHILS # (MANUAL) 0.1 T/MM3 (0-0.2); EOSINOPHILS # (MANUAL) 0.6 T/MM3 (0-0.5); LYMPHOCYTES # (MANUAL) 0.5 T/MM3 (1-4.8); MONOCYTES # (MANUAL) 0.5 T/MM3 (0-0.8); NEUTROPHILS #(MANUAL)-ABSOLUTE 8.4 T/MM3 (1.8-7.7)
[2017-02-09 18:20] LABS: AMPHETAMINE SCREEN,URINE NEGATIVE; BARBITURATE SCREEN,URINE NEGATIVE; BENZODIAZEPINES SCREEN,URINE NEGATIVE; CANNABINOID SCREEN,URINE NEGATIVE; COCAINE SCREEN,URINE NEGATIVE; METHADONE SCREEN, URINE NEGATIVE; METHAMPHETAMINE SCREEN, URINE NEGATIVE; OPIATE SCREEN,URINE NEGATIVE; PHENCYCLIDINE SCREEN,URINE NEGATIVE; TRICYCLIC ANTIDEPRESSANT,URINE NEGATIVE
[2017-02-09] MEDS ORDERED: NORMAL SALINE 500 ML IV ONE (18:45)
--- OUTSIDE RECORDS SUMMARY | 2017-02-09 18:49 | XMS REPORT | Continuity of Care Document ---
Author Author [facility] Organization [facility] Address Unknown Phone Unavailable Support Name Relationship Address Phone BENTON HERNANDEZ MD Caregiver [address] [place] [address] [place] [phone] ASIM RUBI DO Caregiver [facility] [address] [facility] [address] [place] [phone] JOHNNY GRIFFITHS Next Of Kin [address] [place], [place] [id number] Insurance Providers Payer Name Policy Number Subscriber Name Relationship Medicare [id number] Froilan Griffiths 18 Self [place] [id number] Froilan Griffiths 18 Self Advance Directives Directive [...] 4 Tab PO NEEDED buys form the [employer] Active Valsartan/Hydrochlorothiazide 0.5 Tab PO DAILY 10/02/08 10/30/09 Discontinued Rivastigmine Tartrate 1 Tab PO TWICE A DAY 05/24/10 07/05/12 Discontinued Vera-3 Fatty Acids 1 Cap PO DAILY 05/24/10 [...] Simvastatin 1 Tab PO BEDTIME 02/15/15 Active Vera-3 Fatty Acids/Fish Oil 1 Cap PO DAILY [...] F (96.8 - 99.1) Temperature (Calculated Celsius) 36.57229 degrees C (36.0 - 37.3) Pulse Rate [...] 31, 2013 9:34pm LAB TEST FORM REQUEST [id number] - Lipase February 15, 2015 3:30pm 152 [...] Has specimen been collected/obtained? Y Urine Specific [place] February 15, 2015 5:00pm >=1.030 H - [...] Prob. Contaminants Name: FROILAN GRIFFITHS Unit #: [id number] : 1930 Sex: F Loc / Svc: [facility] DOS: 01/28/15 Signed Report #: [id number] DIAGNOSTIC IMAGING REPORT TYPE OF EXAM: EPIDURAL [...] 11/18/14 FLUOROGUIDE FOR SPINE INJECT completed 11/18/14 [id number]"INJECTION, METHYLPREDNISOLONE ACETATE, 40 MG" completed 11/18/14"LOW OSMOLAR CONTRAST MATERIAL, 100-199 MG/ML IODINE C completed INJECT SPINE LUMBAR/SACRAL completed 01/28/15 FLUOROGUIDE FOR SPINE INJECT completed 01/28/15"INJECTION, METHYLPREDNISOLONE ACETATE, 40 MG" completed 01/28/15"LOW OSMOLAR CONTRAST MATERIAL, 100-199 MG/ML IODINE C completed Encounters Encounter Location Date/Time Departed Emergency Room [facility] 02/15/15 3:01pm Registered Clinic [facility] 01/28/15 9:18am Registered [facility] 11/18/14 12:20pm Recent Diagnosis
[2017-02-09] MEDS ORDERED: ONDANSETRON 4mg/2ml INJECTION IV PRN (19:30)
[2017-02-09] MEDS ORDERED: ACETAMINOPHEN 325 MG TABLET PO PRN (19:30)
[2017-02-09 19:32] VITALS: PULSE 77
--- NOTE | 2017-02-09 19:35 | NUR ---
ARRIVAL: PT ARRIVED FROM ED AT 19:33 BY WHEEL CHAIR ALONG WITH HER 3 SONS AND . VITALS TAKEN AND TIGER TEXT SENT NOTIFYING TELE-DOC.
[2017-02-09 19:39] VITALS: Ht 165.1 cm; Wt 61.8 kg
[2017-02-09 19:59] VITALS: PULSE 67; RESP 16; O2SAT 100
[2017-02-09 20:25] VITALS: BP 173/98; PULSE 86; RESP 18; TEMP 96.3; O2SAT 98
[2017-02-09 20:27] VITALS: BP 162/93
--- NOTE | 2017-02-09 20:32 | HPPDOC ---
HPI - Adult Date DATE: 02/09/17 TIME: 20:16 General Chief Complaint: syncope History of Present Illness The pt is a 87 yo who woke up around 1000 and was in her normal state of health , ate lunch around noon without difficulty but found by her 1500 slumped over at the kitchen table. He called the son who came over and assessed the patient. He reports that she was moaning initially but then became unresponsive, "eyes rolled in the back of her head". he total amount of time until the EMS came and she regained full conscienciouness was about 40 minutes. There was no incontinence, clonic movements, choking, spasms, and pt was back to baseline immediately when EMS arrived, The sons in the room state that she did an exact identical event when she accidentall took too much of some sleep meds back in November 04, 2016. Presently during my exam she is without complaints, no symptoms. Past Medical History Past Medical History Patient's Medical History: (1) Urinary Tract Infection not otherwise specified (2) Subarachnoid hemorrhage following injury with open intracranial wound (3) Altered mental state Surgical History Patient's Surgical History: none Current Medications Home Meds Reported Medications Acetaminophen (Acetaminophen) 500 Mg Tablet, 500 MG PO Q6H Y for PAIN 02/09/17 Pantoprazole Sodium (Pantoprazole Sodium) 40 Mg Tablet.dr, 40 MG PO DAILY 02/09/17 Tramadol HCl (Tramadol HCl) 50 Mg Tablet, 50 MG PO QID Y for PAIN 02/09/17 Naproxen (Naproxen) 375 Mg Tablet, 375 MG PO BID 02/09/17 Quetiapine Fumarate (Seroquel) 25 Mg Tablet, 25 MG PO HS 05/24/15 Levothyroxine Sodium (Synthroid) 50 Mcg Tablet, 50 MCG PO ACB 07/08/12 Rivastigmine (Exelon Patch) 9.5 Mg Patch, 1 PATCH TD DAILY 07/05/12 Losartan/Hydrochlorothiazide (Hyzaar 50/12.5 Tablet) 1 Tab Tablet, 1 TAB PO DAILY 12/07/11 Allergies: Coded Allergies: Penicillins (Verified Allergy, Unknown, HIVES, 11/15/16) bacitracin (Verified Allergy, Unknown, RASH, ITCHING, 11/15/16) dextrose (Verified Allergy, Unknown, 11/15/16) gramicidin D (Verified Allergy, Unknown, RASH, ITCHING, 11/15/16) hydrocodone (Verified Allergy, Unknown, 11/15/16) neomycin (Verified Allergy, Unknown, RASH, ITCHING, 11/15/16) polymyxin B (Verified Allergy, Unknown, RASH, ITCHING, 11/15/16) Soy (Verified Adverse Reaction, Unknown, SORE MOUTH, 11/15/16) Sulfa (Sulfonamide Antibiotics) (Verified Adverse Reaction, Unknown, DIZZINESS, 11/15/16) cephalexin (Verified Adverse Reaction, Unknown, YEAST INFECTION, 11/15/16) codeine (Verified Adverse Reaction, Unknown, NAUSEA, DIZZINESS, 11/15/16) lincomycin (Verified Adverse Reaction, Unknown, COLITIS, 11/15/16) moxifloxacin (Verified Adverse Reaction, Unknown, DIZZINESS, NAUSEA, ) Family History Family History: noncontributory due to advanced age Social History Smoking Status: Never smoker Does patient use chewing tobac: No Second Hand Exposure: No Substance Use Type: does not use Alcohol Intake: none Sexuality: male partner Advance Directives: Yes DPOA for Healthcare Only (PAPERWORK IN OFFICE) Review of Systems Constitutional: REPORTS: other (recent URI/ FLu like symtoms. ), DENIES: fever , insomnia, weight gain, weight loss ENMT Mouth/Throat: DENIES: sore throat Cardiovascular DENIES: chest pain, dyspnea on exertion Vascular: DENIES: pedal edema Pulmonary Respiratory: cough, DENIES: dyspnea, sputum GI Upper Abdomen: DENIES: dysphagia, heartburn/indigestion General: DENIES: dysuria Musculoskeletal General: DENIES: joint pain, pain, tenderness, weakness Physical Exam General General Nourishment: well nourished General Body Habitus: well groomed Vital Signs Vital Signs Date Time Temp Pulse Resp B/P Pulse Ox O2 Delivery O2 Flow Rate FiO2 02/09/17 19:59 67 16 100 Room Air 02/09/17 16:30 97.6 150/67 Height (Feet): 5 Height (Inches): 5.00 Eyes Brief: FOUND: EOMI Neck Brief: NOT FOUND: nuchal rigidity, tenderness Respiratory Brief: FOUND: clear all morales, equal bilaterally, wheezes Cardiovascular (brief) Cardiac Brief: FOUND: regular rate, regular rhythm, NOT FOUND: murmur, pedal edema Abdomen (brief) Abdominal Brief: FOUND: BS normo active x4, soft Integumentary (brief) Integumentary Brief: FOUND: warm, NOT FOUND: rash Neurologic (brief) Neurological Brief: FOUND: cranial 2-12 intact Neurologic RN Documented GCS Eye Opening: (4)Spontaneous Verbal: (5)Oriented Motor: (6)Obeys Commands Total: Psychiatric (brief) FOUND: alert, attentive, normal affect, oriented Laboratory Laboratory Tests Test 02/09/17 17:27 02/09/17 17:55 02/09/17 19:43 White Blood Count 10.1T/MM3 Red Blood Count 3.67M/MM3 Hemoglobin 12.3GM/DL Hematocrit 37.0% Mean Corpuscular Volume 100.8UM3 Mean Corpuscular Hemoglobin 33.5UUG Mean Corpuscular Hemoglobin Concent 33.2GM/DL RDW Standard Deviation 43.8FL Platelet Count 324T/MM3 Mean Platelet Volume 8.9UM3 Immature Granulocyte % (Auto) % Neutrophils (%) (Auto) % Lymphocytes (%) (Auto) % Monocytes (%) (Auto) % Eosinophils (%) (Auto) % Basophils (%) (Auto) % Absolute Immature Granulocyte (auto T/MM3 Absolute Neutrophils (auto) T/MM3 Absolute Lymphocytes (auto) T/MM3 Absolute Monocytes (auto) T/MM3 Absolute Eosinophils (auto) T/MM3 Absolute Basophils (auto) T/MM3 Neutrophils % (Manual) 83.0% Lymphocytes % (Manual) 5.0% Monocytes % (Manual) 5.0% Eosinophils % (Manual) 6.0% Basophils % (Manual) 1.0% Absolute Neutrophils (Manual) 8.4T/MM3 Lymphocytes # (Manual) 0.5T/MM3 Monocytes # (Manual) 0.5T/MM3 Eosinophils # (Manual) 0.6T/MM3 Basophils # (Manual) 0.1T/MM3 Red Cell Morphology Comment Normal Turbidity < 20 Sodium Level 137MEQ/L Potassium Level 4.3MEQ/L Chloride Level 98MEQ/L Carbon Dioxide Level 26MEQ/L Anion Gap 13MEQ/L Blood Urea Nitrogen 21.0MG/DL Creatinine 1.2MG/DL Glomerular Filtration Rate Calc 42 BUN/Creatinine Ratio 18RATIO Glucose Level 103MG/DL Calculated Osmolality 267MOSM/KG Calcium Level 9.5MG/DL Total Bilirubin 0.80MG/DL Icterus Index < 2 Aspartate Amino Transf (AST/SGOT) 35U/L Alanine Aminotransferase (ALT/SGPT) 26U/L Alkaline Phosphatase 80U/L Troponin I < 0.012ng/ml Total Protein 7.4G/DL Albumin 3.9G/DL Globulin 3.5G/DL Albumin/Globulin Ratio 1.1RATIO Chemistry Specimen Hemolysis < 15 Urine Collection Type Cleancatch-midstream Urine Color Yellow Urine Turbidity Clear Urine pH 7.0 Urine Specific [place] 1.020 Urine Protein Negative Urine Glucose (UA) Negative Urine Ketones Negative Urine Blood Negative Urine Nitrite Negative Urine Bilirubin Negative Urine Urobilinogen 0.2EU/DL Urine Leukocyte Esterase Negative Urinalysis Comment Microscopic not ind. Urine Opiates Screen NegativeNG/ML Urine Oxycodone Screen NegativeNG/ML Urine Methadone Screen NegativeNG/ML Urine Propoxyphene Screen NegativeNG/ML Urine Barbiturates Screen NegativeNG/ML Urine Tricyclic Antidepressants NegativeNG/ML Urine Phencyclidine Screen NegativeNG/ML Urine Amphetamines Screen NegativeNG/ML Urine Methamphetamines Screen NegativeNG/ML Urine Benzodiazepines Screen NegativeNG/ML Urine Cocaine Screen NegativeNG/ML Urine Cannabinoids Screen NegativeNG/ML Lab Scanned Report REFERENCE [id number] Assessment & Plan Assessment 1. Syncope uncertain cause but appears to have happened before, will monitor on telemetry, repeat labs, orthostatic vitals, labs and CXR normal in ER, Pt was wearing 2 Exelon patches not her prescribed one, which could have contributed to her syncope, no hx of seizures or symptoms consistant with this 2. Depression/ dementia probable a mix up of medications, holding her seroquel and exelonpatch due to the syncope, monitor 3. HTN- monitor, stable. Code Status Full Code Hospital Course Summary Disclaimer The hospital course summary below is not to be considered part of the above Progress Note. JN BANG MD Feb 09, 2017 20:25
[2017-02-10] VITALS (10 sets, daily range): BP systolic 134–164; BP diastolic 66–79; PULSE 70–83; RESP 16–18; TEMP 97.2–97.6; O2SAT 96–97
--- NOTE | 2017-02-10 07:44 | NUR ---
SHIFT REPORT: PT IS A&OX3, COOPERATIVE, ON ROOM AIR, UP TO THE BATHROOM WITH 1 ASSIST AND GATE BELT PT CAN BE UNSTEADY ON HER FEET. PT STATES SHE HAS A WALKER AT HOME, BUT DOESN'T USE IT. PT STATES SHE FINDS THE PILLOW HARD TO SLEEP ON AND WANTS TO RETURN HOME TODAY. PT DENIES PAIN OR SOA. CALL LIGHT WITHIN REACH, BED ALARM ON.
--- NOTE | 2017-02-10 09:01 | DI ---
Indication: ITS.REASON: cough PROCEDURE: CHEST 1 VIEW: Encounter: Initial Comparison: July 08, 2015 Findings: The lungs are stable in appearance without new focal airspace consolidation. Fibrotic changes or scarring. There is no pleural effusion or pneumothorax. The heart size, pulmonary vascularity and mediastinal contours are unchanged. IMPRESSION: Stable appearance of the chest without acute cardiopulmonary disease. .
--- NOTE | 2017-02-10 09:02 | DI ---
Indication: ITS.REASON: Altered mental status, confusion PROCEDURE: CT HEAD W/O CONTRAST: Encounter: Initial Comparison: March 01, 2016 Technique: Axial CT images through the head were performed without contrast. Iterative Reconstruction dose reducing technique was utilized. FINDINGS: Mild generalized atrophy. The ventricles are of normal size, shape, and contour for the patient's age. There are scattered areas of low attenuation in the white matter which most likely represent changes from chronic microvascular ischemia. The brainstem, cerebellum, and cerebral hemispheres otherwise have a normal morphology and CT attenuation. There is no evidence of midline displacement. No hemorrhage, signs of acute territorial stroke, mass effect, mass lesions, or edema is evident. The visualized portions of the skull base, midface, and calvarium demonstrate no abnormality. Mild left maxillary sinus disease. The tympanic and mastoid cavities appear normal. IMPRESSION: No acute intracranial abnormality or hemorrhage. There is a preliminary report by [facility]. .
--- NOTE | 2017-02-10 12:04 | NUR ---
AMBULATE/VS NOTIFIED DR. RECIO OF PT'S AMBULATING, PT REPORTS SHE DOES NOT USE A WALKER/CANE AT HOME BUT USES A CANE WHILE IN THE PUBLIC.
--- NOTE | 2017-02-10 15:29 | DSPDOC ---
General Date Date DATE: 02/10/17 TIME: 15:15 Attending Physician Yolande Gutierres MD Admitting Physician Yolande Gutierres MD Consulting Physician Admitting Diagnosis Altered Mental State Discharge Diagnosis Altered mental status/possible syncope of undetermined etiology, Elevated prolactin level which has normalized, Dementia, Insomnia, Chronic pain, Hypertension, Hypothyroidism Procedures None Laboratory Item Value Date Time Prolactin 12.4 NG/ML 02/10/17 0909 Prolactin 46.8 NG/ML 02/09/17 1747 Laboratory Tests Test 02/09/17 17:27 02/09/17 17:47 02/09/17 17:55 02/09/17 19:43 White Blood Count 10.1T/MM3 (4.5-11.0) Red Blood Count 3.67M/MM3 (4.00-5.20) Hemoglobin 12.3GM/DL (12-16) Hematocrit 37.0% (36-46) Mean Corpuscular Volume 100.8UM3 (80-100) Mean Corpuscular Hemoglobin 33.5UUG (26-34) Mean Corpuscular Hemoglobin Concent 33.2GM/DL (31-37) RDW Standard Deviation 43.8FL (36.9-50.2) Platelet Count 324T/MM3 (130-400) Mean Platelet Volume 8.9UM3 (9.4-12.4) Immature Granulocyte % (Auto) % (0.0-0.5) Neutrophils (%) (Auto) % (33-66) Lymphocytes (%) (Auto) % (23-45) Monocytes (%) (Auto) % (0-9.0) Eosinophils (%) (Auto) % (0-4) Basophils (%) (Auto) % (0-2) Absolute Immature Granulocyte (auto T/MM3 (0.00-0.03) Absolute Neutrophils (auto) T/MM3 (1.8-7.7) Absolute Lymphocytes (auto) T/MM3 (1-4.8) Absolute Monocytes (auto) T/MM3 (0-0.8) Absolute Eosinophils (auto) T/MM3 (0-0.5) Absolute Basophils (auto) T/MM3 (0-0.2) Neutrophils % (Manual) 83.0% (33-66) Lymphocytes % (Manual) 5.0% (23-45) Monocytes % (Manual) 5.0% (0-9.0) Eosinophils % (Manual) 6.0% (0-4) Basophils % (Manual) 1.0% (0-2) Absolute Neutrophils (Manual) 8.4T/MM3 (1.8-7.7) Lymphocytes # (Manual) 0.5T/MM3 (1-4.8) Monocytes # (Manual) 0.5T/MM3 (0-0.8) Eosinophils # (Manual) 0.6T/MM3 (0-0.5) Basophils # (Manual) 0.1T/MM3 (0-0.2) Red Cell Morphology Comment Normal Turbidity < 20 (0-20) Sodium Level 137MEQ/L (134-144) Potassium Level 4.3MEQ/L (3.6-5) Chloride Level 98MEQ/L (98-107) Carbon Dioxide Level 26MEQ/L (22-30) Anion Gap 13MEQ/L (5-15) Blood Urea Nitrogen 21.0MG/DL (7-17) Creatinine 1.2MG/DL (0.7-1.2) Glomerular Filtration Rate Calc 42 BUN/Creatinine Ratio 18RATIO (6-26) Glucose Level 103MG/DL (65-110) Calculated Osmolality 267MOSM/KG (261-280) Calcium Level 9.5MG/DL (8.4-10.2) Total Bilirubin 0.80MG/DL (0.20-1.30) Icterus Index < 2 (0-7) Aspartate Amino Transf (AST/SGOT) 35U/L (14-36) Alanine Aminotransferase (ALT/SGPT) 26U/L (9-52) Alkaline Phosphatase 80U/L (38-126) Troponin I < 0.012ng/ml (0-0.12) Total Protein 7.4G/DL (6.3-8.2) Albumin 3.9G/DL (3.5-5.0) Globulin 3.5G/DL (2.4-3.6) Albumin/Globulin Ratio 1.1RATIO (1.1-2.2) Chemistry Specimen Hemolysis < 15 (0-25) Prolactin 46.8NG/ML Urine Collection Type Cleancatch-midstream Urine Color Yellow (YELLOW) Urine Turbidity Clear (CLEAR) Urine pH 7.0 (5.0-8.0) Urine Specific [place] 1.020 (1.015-1.025) Urine Protein Negative (NEGATIVE) Urine Glucose (UA) Negative (NEGATIVE) Urine Ketones Negative (NEGATIVE) Urine Blood Negative (NEGATIVE) Urine Nitrite Negative (NEGATIVE) Urine Bilirubin Negative (NEGATIVE) Urine Urobilinogen 0.2EU/DL (NORMAL) Urine Leukocyte Esterase Negative (NEGATIVE) Urinalysis Comment Microscopic not ind. Urine Opiates Screen NegativeNG/ML Urine Oxycodone Screen NegativeNG/ML Urine Methadone Screen NegativeNG/ML Urine Propoxyphene Screen NegativeNG/ML Urine Barbiturates Screen NegativeNG/ML Urine Tricyclic Antidepressants NegativeNG/ML Urine Phencyclidine Screen NegativeNG/ML Urine Amphetamines Screen NegativeNG/ML Urine Methamphetamines Screen NegativeNG/ML Urine Benzodiazepines Screen NegativeNG/ML Urine Cocaine Screen NegativeNG/ML Urine Cannabinoids Screen NegativeNG/ML Lab Scanned Report REFERENCE [id number] Test 02/10/17 09:09 Prolactin 12.4NG/ML Radiology CT head shows no acute intracranial abnormality or hemorrhage. There is mild left maxillary sinus disease. Chest x-ray shows stable appearance of the chest without acute cardiopulmonary disease History of Present Illness The pt is a 87 yo who woke up around 1000 and was in her normal state of health , ate lunch around noon without difficulty but found by her 1500 slumped over at the kitchen table. He called the son who came over and assessed the patient. He reports that she was moaning initially but then became unresponsive, "eyes rolled in the back of her head". he total amount of time until the EMS came and she regained full conscienciouness was about 40 minutes. There was no incontinence, clonic movements, choking, spasms, and pt was back to baseline immediately when EMS arrived, The sons in the room state that she did an exact identical event when she accidentall took too much of some sleep meds back in November 04, 2016. Presently during my exam she is without complaints, no symptoms. Hospital Course The patient was admitted last night for an episode of unresponsiveness/possible syncope that lasted approximately 30-40 minutes. The patient did not eat breakfast yesterday but did eat soup for lunch. She took some tramadol for pain at noon time. Her found her slumped over the table and it was difficult to arouse her for approximately 30 minutes. EMS arrived and took her to the emergency room. In the ER she was back to normal. Vital signs were normal. She was not significantly orthostatic. She was given fluids. CBC and comp with the metabolic were essentially normal. CT head showed no acute findings. Chest x-ray was stable. Urinalysis was normal. Prolactin was elevated at 48. The patient never had a seizure before. She was not incontinent of bowel or bladder and did not bite her tongue or mouth. Her and sons did not see any type of seizure activity. The patient states that she is currently back to her normal state of health and has no complaints. She denies any pain. She is eating and drinking well. Comprehensive review of systems is negative other than difficulties with memory which is chronic. She also has chronic low back pain when she moves but none at rest. She has some chronic urinary incontinence which is unchanged from usual. Physical exam Orthostatic vital signs were obtained and shows no significant orthostasis. Heart rate is stable. She has had no arrhythmia on telemetry. GEN-alert, oriented 3, no acute distress. HEENT-sclera anicteric, oropharynx is moist NECK-supple , no JVD, no bruits CV-regular rate and rhythm CHEST-clear to auscultation bilaterally ABD-soft, nontender, nondistended with positive bowel sounds -no [place] EXT-no edema NEURO-no focal deficits. Patient does have memory difficulties SKIN-warm and dry and without rashes The patient's and youngest son were present during the following discussion regarding dismissal. The cause of the patient's episode of altered mental status/possible syncope yesterday is not known. Most likely it is related to medication since she did have on to Exelon patches in the emergency room. She had also taken tramadol prior to this episode. With her dementia, it's unknown if she might have accidentally taken her Seroquel at the wrong time or may be took too many of her other medications. It's unknown if the elevated lactate and is significant. I did talk to Dr. Brewster and he stated the patient could undergo outpatient EEG and follow-up with him as an outpatient. I also did talk with Dr. Rubi and he will plan to see the patient in the office early this week. The patient does appear stable for dismissal to home. She is not to drive until Dr. Rubi says it is okay. She is to hold off on tramadol and Exelon patch at this point. When she follows up with Dr. Rubi he can decide whether these medications can be restarted. I did recommend to her that she have her or another family member help her with her medications to make sure that she is taking them correctly. Dr. Rubi can decide whether or not to have the patient undergo outpatient EEG testing and/or evaluation with neurology. The patient was encouraged to eat regular meals. She was encouraged to get up from the lying or seated position slowly to make sure she is not lightheaded. The patient will be dismissed home with family in stable condition. Problems: Code Status Full Code Home Meds Reported Medications Acetaminophen (Acetaminophen) 500 Mg Tablet, 500 MG PO Q6H Y for PAIN 02/09/17 Pantoprazole Sodium (Pantoprazole Sodium) 40 Mg Tablet.dr, 40 MG PO DAILY 02/09/17 Naproxen (Naproxen) 375 Mg Tablet, 375 MG PO BID 02/09/17 Quetiapine Fumarate (Seroquel) 25 Mg Tablet, 25 MG PO HS 05/24/15 Levothyroxine Sodium (Synthroid) 50 Mcg Tablet, 50 MCG PO ACB 07/08/12 Losartan/Hydrochlorothiazide (Hyzaar 50/12.5 Tablet) 1 Tab Tablet, 1 TAB PO DAILY 12/07/11 Discontinued Reported Medications Tramadol HCl (Tramadol HCl) 50 Mg Tablet, 50 MG PO QID Y for PAIN 02/09/17 Rivastigmine (Exelon Patch) 9.5 Mg Patch, 1 PATCH TD DAILY 07/05/12 Face to Face Encounter I met with patient on the day of dismissal and discussed follow up appointments , medications, and safety plan. Discharge Disposition Dismiss to home in stable condition with family Copies To 1: ALFONZO BREWSTER MD; ASIM RUBI STEPHANIE L MD Feb 10, 2017 15:28
--- NOTE | 2017-02-10 15:40 | NUR ---
DISCHARGE DISCHARGE INSTRUCTIONS EXPLAINED TO PATIENT, HER SON, AND . SON REPORTS THEY WILL WORK ON HER MEDS TO MAKE SURE SHE IS TAKING THEM RIGHT AT HOME. PT AGREES TO DISCUSS MEDS WITH DR. RUBI. PACKET SENT WITH PATIENT. BELONGINGS PACKED AND SENT WITH PATIENT. ID BAND REMOVED. IVL DC'D. PT DRESSED AND ASSISTED OUT VIA WHEELCHAIR.
== END 2017-02-10 15:55 | disposition home or self-care (01) | DRG 312 ==
LOC: ED 16:30 → EDHOLD 18:36 → MED 18:36 → OBSVTOIN 19:24
PROVIDERS: ADMIT Internal Medicine; ATTEND Internal Medicine
DX: R55 Syncope and collapse (principal); R41.82 Altered mental status, unspecified; F32.9 Major depressive disorder, single episode, unspecified; F03.90 Unspecified dementia, unspecified severity, without behavioral disturbance, psychotic disturbance, mood disturbance, and anxiety; I10 Essential (primary) hypertension; E03.9 Hypothyroidism, unspecified; G89.29 Other chronic pain
CPT/HCPCS: 36000; 36415; 80053; 80306; 81003; 84146; 84484; 85025; 93005

== ENCOUNTER 2018-04-24 17:14 | Inpatient (IN) ==
[~2018-04-24 17:14] MED LIST changes: +ACETAMINOPHEN 325 MG TABLET PO PRN; -CALC600T12 PO; -CHOL100047 PO; -FISH1CAP51 PO; -HERB1CAP2 PO; -LEVO50TA69 PO; -LOSA1TAB28 PO; -NAPR220T PO; +ONDANSETRON 4 MG/2 ML INJECTION IVP PRN; -PROC-14 PO; -QUET25TA PO; -RIVA1PAT3 TD; +SALINE FLUSH 10ml SYRINGE IV PRN; +SENNA + DOCUSATE TABLET PO PRN; -SIMV20TA2 PO; -THIO100C3 PO; -UBID100C10 PO; -[UNRECOGNIZED DRUG - CODE] PO
--- NOTE | 2018-04-24 17:52 | History & Physical Report ---
History of Present Illness Date: 04/24/18 Chief complaint: right lower leg cellulitis, right ankle ulceration HPI: Kita Mccartney is a very pleasant 88-year-old female patient of Dr. aCrcamo who current resides at [facility]. She recently began seeing Dr. Calvin at the [facility] wound care clinic for treatment of a chronic right lateral malleolus non-pressure ulceration which she reports has been present since September 2017. On 04/07/18 she was started on doxycycline 100mg BID x 10 days due to concerns of cellulitis to her right lower extremity as well as for treatment of her chronic ulceration. She was last seen by Dr. Calvin on at which time she underwent an excisional debridement of the subcutaneous tissue of the right lateral malleolus. Procedures notes from that time indicated that the ulceration following debridement measured 0.2cm x 0.2cm x 0.1cm and showed no signs of infection, though persistent erythema and 2+ pitting edema were noted. A mepilex dressing with Aquacel was placed and she was encouraged to elevate her right leg as much as possible as well as to wear tensoshape stockings due to her increased edema. She reports that since that time, the erythema to her right lower leg has progressively gotten worse, extending further up her leg. She also complains of persistent pain to her right lower leg especially with tough and movement. She denies any recent fevers , chill, chest pain, shortness of breath, abdominal pain, nausea, vomiting, diarrhea or other complaints or concerns. Due to the worsening redness, Kita presented to Dr. Carcamo's clinic today for further evaluation. Due to the reported worsening of the erythema despite recent antibiotic treatment, Dr. Carcamo contacted Dr. Woodward and Kita was directly admitted to [facility] observation status for further evaluation and IV antibiotic treatment. On exam, Kita is seen immediately upon arrival with her son, Alexander, brayan who contributes to the history. Prior medical records, custodial records and nursing notes also contributed to the medical history. Review of Systems All systems PM: 10-point ROS was reviewed, no additional remarkable complaints except - Constitutional Constitutional: Absent: chills, fatigue, fever(s), headache(s), lethargy, weakness - EEFLT Eyes: Absent: diplopia, loss of vision, photophobia Ears: Absent: ear pain Balance: Absent: falling to one side Nose: Absent: nosebleeds, allergies Mouth/Throat: Absent: sore throat, changes in swallowing, dry mouth - Cardiovascular Cardiovascular: Present: edema. Absent: chest pain, palpitations, syncope, dyspnea on exertion, orthopnea Rhythm: Present: regular rhythm Vascular: Present: pedal edema, unilateral swelling (right > left). Absent: pallor of an extermity - Respiratory Respiratory: Absent: cough, dyspnea, hemoptysis, dyspnea on exertion, wheezing, pain on inspiration, chest congestion - Gastrointestinal Gastrointestinal: Absent: abdominal pain, constipation, diarrhea, melena, nausea , vomiting - Genitourinary Genitourinary: Absent: dysuria, flank pain, hematuria Menstruation: post hysterectomy - Musculoskeletal Musculoskeletal: Present: abnormal gait (ambulates with walker), back pain ( chronic). Absent: deformity Musculoskeletal Comments: Generalized deconditioning - Integumentary/Breasts Integumentary: Present: erythema (right lower leg), non-healing lesions (right lateral malleolus). Absent: rash - Neurological Neurological: Present: weakness (generalized). Absent: dizziness, focal weakness, vertigo - Psychiatric Psychiatric: Present: anxiety, depression - Endocrine Endocrine: Absent: flushing, palpitations - Hematologic/Lymphatic Hematologic/Lymphatic: Absent: easy bruising - Allergic/Immunologic Allergic/Immunologic: Absent: seasonal rhinorrhea Past Medical History Medical History Updates: Hypothyroidism. Hyperlipidemia. Insomnia. Alzheimer' s disease. Hypertension. Pulmonary hypertension. Chronic venous insufficiency. Degenerative disc disease. Chronic back pain. Cataracts. GERD. Constipation. Non-pressure ulceration to right lateral malleolus. Deconditioning. Lower extremity edema. Spinal stenosis. Major depressive disorder. Chronic kidney disease, stage III. Surgical History: Laminectomy - 2013. Back surgery, unknonw - 2002. Colonoscopy with polypectomy - 2014. Hysterectomy - 1994. Right shoulder surgery. Family History: Sister - alive Dementia Diabetes Mother - , age 71 High blood pressure Stroke Diabetes Brother - , age 81 Diabetes Father - , age 53 Hypertension Hyperlipidemia Family History: Other (Extensive family history of CV disease) - Social History Smoking status: Never smoker Substance use type: does not use Alcohol intake frequency: does not drink Housing: custodial ([facility] Current occupational status: retired Does patient use chewing tobacco?: No Current residence: [place] Social history: PCP - Dr. Carcamo. Neuro - Dr. Gamboa. Cardio - Dr. Kapadia. Medications Home Medications Medication Instructions Recorded Confirmed Type Levothyroxine Tab [Synthroid] 50 mcg PO ACB #0 07/08/12 04/24/18 History Gabapentin [Neurontin] 100 mg PO TID 07/30/17 04/24/18 History Ginkgo Biloba 120 mg PO DAILY 07/30/17 04/24/18 History Losartan/Hctz 50/12.5 [Hyzaar 1 tab PO BID 07/30/17 04/24/18 History 50/12.5] Meloxicam 15 mg PO DAILY 07/30/17 04/24/18 History Rivastigmine Patch [Exelon Patch] 9.5 mg TD DAILY 07/30/17 04/24/18 History Simvastatin [Zocor] 20 mg PO HS 07/30/17 04/24/18 History Alpha Lipoic Acid 200 mg PO BID 09/14/17 04/24/18 History Colon Herbal Cleanser 2 cap PO BID 09/14/17 04/24/18 History [place] Xl 2 tab PO DAILY 09/14/17 04/24/18 History Peg 3350 238 G Bottle [Miralax] 8.5 - 17 gm PO DAILY PRN 09/14/17 04/24/18 History Silver Immune Supplement 2 tsp PO DAILY PRN 09/14/17 04/24/18 History Silver Lozenges 1 lozenge PO Q4H PRN 09/14/17 04/24/18 History Ubidecarenone/Vit E Acet [Co Q-10 200 mg PO DAILY 09/14/17 04/24/18 History 100 mg Softgel] quiNINE sulfate [Quinine Sulfate] 324 mg PO HS 09/14/17 04/24/18 History Acetaminophen [Acetaminophen Extra 1,000 mg PO BID 04/24/18 04/24/18 History Strength] Arginine [l-Arginine] 500 mg PO DAILY 04/24/18 04/24/18 History Calcium Carbonate 1,200 mg PO DAILY 04/24/18 04/24/18 History Cholecalciferol [Vit. D-3] 1 tab PO DAILY 04/24/18 04/24/18 History Multivit with Iron-Minerals 1 each PO DAILY 04/24/18 04/24/18 History [Centravites 50 Plus] Pantoprazole Sodium [Protonix] 40 mg PO DAILY 04/24/18 04/24/18 History Allergies Allergy/AdvReac Type Severity Reaction Status Date / Time bacitracin Allergy Unknown RASH, Verified 04/24/18 17:18 ITCHING dextrose Allergy Unknown Verified 04/24/18 17:18 gramicidin D Allergy Unknown RASH, Verified 04/24/18 17:18 ITCHING hydrocodone Allergy Unknown Verified 04/24/18 17:18 neomycin Allergy Unknown RASH, Verified 04/24/18 17:18 ITCHING Penicillins Allergy Unknown HIVES Verified 04/24/18 17:18 polymyxin B Allergy Unknown RASH, Verified 04/24/18 17:18 ITCHING cephalexin AdvReac Unknown YEAST Verified 04/24/18 17:18 INFECTION codeine AdvReac Unknown NAUSEA, Verified 04/24/18 17:18 DIZZINESS lincomycin AdvReac Unknown COLITIS Verified 04/24/18 17:18 moxifloxacin AdvReac Unknown DIZZINESS, Verified 04/24/18 17:39 NAUSEA Sulfa (Sulfonamide AdvReac Unknown DIZZINESS Verified 04/24/18 17:39 Antibiotics) Soy AdvReac Unknown SORE MOUTH Uncoded 04/24/18 17:39 Exam Vital Signs: Temperature 96.3 F L 04/24/18 17:04 Pulse Rate 76 04/24/18 17:04 Respiratory Rate 18 04/24/18 17:04 Blood Pressure 161/80 H 04/24/18 17:04 Pulse Oximetry 97 04/24/18 17:04 Height/Weight/BMI: Height 5 ft 5 in Weight 147 lb 0.773 oz Body Mass Index 24.5 Comments: Patient is seen immediately upon her arrival in the presence of nursing and her son, Alexander. - Constitutional Present: no acute distress, well nourished, well developed, cooperative - Routine HEENT Exam Head: Present: normocephalic, atraumatic Eye: Present: PERRL. Absent: conjunctival icterus ENT: Present: mucous membranes moist, oropharynx clear, dentition normal ( dentures) - Routine Neck Exam Present: supple, full ROM, trachea midline - Routine Chest/Breast/Axilla Exam Chest wall: Absent: pacemaker - Routine Respiratory Exam Present: CTA bilaterally. Absent: respiratory distress, wheezes - Routine Cardiovascular Exam Present: RRR, S1, S2 - Routine Abdominal Exam Present: soft, normoactive bowel sounds, non distended, non tender - Routine Extremities Exam Present: edema (right - 2+, left - trace), full ROM, pulses intact, calf tenderness (right), tenderness (right) Comments: Erythema noted to right lower leg extending to dorsal foot and up lower extremity just distal to the knee; known ulceration noted to right lateral malleolus without discharge or bleeding; no red streaking; 2+ pitting edema noted to right lower extremity/calf; trace edema to left lower extremity; 2+ pedal pulses bilaterally; increased pain with touch and movement to right lower extremity and calf. - Routine Back/Spine/Pelvis Exam Back/Spine: Present: full ROM, kyphosis Comments: Moves freely in bed and ambulates easily with walker to and from bathroom. - Routine Skin Exam Present: intact, erythema (right lower extremity), dry, warm, wounds ( ulceration to right lateral malleolous) - Routine Neurological Exam Present: alert, oriented X3, moving all extremities, hearing grossly intact, normal speech. Absent: facial asymmetry - Routine Psychiatric Exam Present: cooperative Results - Labs CBC & Chem 7: 04/24/18 18:18 04/24/18 18:18 Assessment and Plan (1) Cellulitis and abscess of right lower extremity Current visit: Yes Status: Acute Assessment and Plan: Assessment: Cellulitis to right lower extremity. Failed outpatient therapy with doxycycline from 04/07/18-04/17/18. Leukopenia (POA). Hyponatremia (POA). 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 S/P excision debridement of ulceration - Dr. Calvin, wound care clinic, . Hypothyroidism. Hyperlipidemia. Chronic kidney disease, stage III. Insomnia. Alzheimer's disease. Hypertension. Pulmonary hypertension. Chronic venous insufficiency. Degenerative disc disease. Chronic back pain. Cataracts. GERD. Constipation. Non-pressure ulceration to right lateral malleolus. Deconditioning. Lower extremity edema. Spinal stenosis. Major depressive disorder. Plan - 04/24/18: Admit patient to observational status under the care of Dr. Woodward and hospitalist service for evaluation of right lower extremity cellulitis and initiation of IV antibiotics. Consult wound care team for continued treatment and close monitoring. Given failed outpatient treatment, patient may require inpatient hospitalization. Vitals stable on admission. Lab results pending. Labs obtained on admission - CBC, CMP, CRP, procalcitonin, lactate and blood cultures x 2 - results pending. Prior culture and sensitivity of wound from 04/03/18 revealed coag negative staphylococcus with sensitivities to doxycycline, gent, linezolid, oxacillin, Bactrim and vancomycin. Recent failed treatment with doxycycline 04/07/18-04/17/18 prior to admission. Will initiate vancomycin Q12 hours for empiric treatment. No discharge from ulceration available to be cultured at this time. Treatment options limited due to patients extensive list of medication allergies. Will continue home medications once reconciled per nursing. Medications reviewed. Given increased swelling/edema with calf pain, will obtain Doppler ultrasound for evaluation of DVT. Consider imaging (ie. ankle x-ray and/or MRI) for further evaluation for osteomyelitis if CRP is elevated. Upon discharge, patient's care will be returned to her PCP, Dr. Carcamo. Patient and family request code status of DNR at time of admission. DVT Prophylaxis: SCD's GI Prophylaxis: Protonix Resuscitation Status: Do Not Resuscitate - Time spent with patient Time with patient PN: 70 minutes - Physician Narrative Physician: Karo Woodward MD Narrative: Date: 04/24/18 Time: 2119 I have independently evaluated and examined this patient. I reviewed the chart, the patient's history, and the DIGITAL PRODUCER/PA's documented findings as above. We discussed and formulated the assessment and plan as above with additions as below: Mrs. Mccartney was seen with her daughter at the bedside shortly after arrival. Patient and her daughter described increasing erythema, warmth, edema, and discomfort in the right lower leg leg and calf over the past 4-5 days without recognized fevers or chills. She was afebrile when seen in the office today. Patient has been on doxycycline recently although wound care note on 04/17 reported no signs or symptoms of infection were noted. At that time +2 pitting edema was reported. NAD, alert, afebrile elderly woman Respirations nonlabored, good airflow, anterior breath sounds clear +2 edema right lower extremity, moderate erythema extending from toes to mid foot with irregular margin, the area is warm and tender to palpation. Distribution of erythema is comparable to that on wound care picture from last week but pt reports that it is brighter red now than it was then. Afebrile, vital signs stable, oxygenating well; white count 4.4 with unremarkable differential and normal platelet count. Creatinine at baseline. CRP < 5. Lactic acid 0.9. Cellulitis-vancomycin initiated based on prior culture of coag-negative staph; multiple allergies including penicillin/first-generation cephalosporins. Has failed doxycycline and also allergic to Bactrim. Linezolid may be an oral option but few choices available. Wound care to reevaluate tomorrow. Cultures pending. Hospital Course Summary Disclaimer: The visit summary below is not to be considered part of the above Progress Note. Hospital Course: Plan - 04/24/18: Admit patient to observational status under the care of Dr. Woodward and hospitalist service for evaluation of right lower extremity cellulitis and initiation of IV antibiotics. Consult wound care team for continued treatment and close monitoring. Given failed outpatient treatment, patient may require inpatient hospitalization. Vitals stable on admission. Lab results pending. Labs obtained on admission - CBC, CMP, CRP, procalcitonin, lactate and blood cultures x 2 - results pending. Prior culture and sensitivity of wound from 04/03/18 revealed coag negative staphylococcus with sensitivities to doxycycline, gent, linezolid, oxacillin, Bactrim and vancomycin. Recent failed treatment with doxycycline 04/07/18-04/17/18 prior to admission. Will initiate vancomycin Q12 hours for empiric treatment. No discharge from ulceration available to be cultured at this time. Treatment options limited due to patients extensive list of medication allergies. Will continue home medications once reconciled per nursing. Medications reviewed. Given increased swelling/edema with calf pain, will obtain Doppler ultrasound for evaluation of DVT. Consider imaging (ie. ankle x-ray and/or MRI) for further evaluation for osteomyelitis if CRP is elevated. Upon discharge, patient's care will be returned to her PCP, Dr. Carcamo. Patient and family request code status of DNR at time of admission.
[2018-04-24] MEDS ORDERED: VANCOMYCIN - PHARMACY CONSULT MC ONE (17:53)
[2018-04-24] MEDS ORDERED: NS FLUSH BAG 500ml IV PRN (18:57)
[2018-04-24] MEDS ORDERED: POLYETHYL GLYCOL 3350 17gm PACKET PO PRN (20:38)
[2018-04-24] MEDS: ACETAMINOPHEN 500 MG TABLET PO SCH (21:51)
[2018-04-24] MEDS: GABAPENTIN 100 MG CAPSULE PO SCH (21:52)
[2018-04-24] MEDS: LOSARTAN PO SCH (22:00)
[2018-04-24] MEDS: HCTZ PO SCH (22:00)
[2018-04-24] MEDS: SIMVASTATIN 20 MG TABLET PO SCH (22:00)
[2018-04-25] MEDS: LEVOTHYROXINE 50 MCG TABLET PO SCH (06:54)
[2018-04-25] MEDS: PANTOPRAZOLE 40 MG TABLET PO SCH (07:18)
--- NOTE | 2018-04-25 08:34 | Ultrasound Report ---
Indication: right leg swelling, erythema PROCEDURE: US venous doppler LE RT: Encounter: Initial Comparison: None Technique: Color Doppler duplex and grayscale sonographic imaging of the right lower extremity was performed. Findings: There is no evidence for acute deep venous thrombosis in the right thigh. Specifically, serial graded compression was performed from the inguinal ligament to the popliteal bifurcation, on the right thigh, demonstrating appropriate compressibility of the deep venous system. In addition, color and pulsed Doppler demonstrate appropriate spontaneous flow, variation with respiration, and augmentation with calf compression. At the ankle, normal flow is identified in the posterior tibial veins; these vessels are also normal in caliber. Impression: No evidence of acute DVT in the right lower limb. .
[2018-04-25 09:44] VITALS: BMI 24.3
[2018-04-25] MEDS: LOSARTAN PO SCH ×2 (10:12→20:27)
[2018-04-25] MEDS: HCTZ PO SCH ×2 (10:12→20:27)
[2018-04-25] MEDS: RIVASTIGMINE 9.5 MG/24 HR PATCH TD SCH (10:12)
[2018-04-25] MEDS: COENZYME Q-10 200mg TABLET PO SCH (10:13)
[2018-04-25] MEDS: ACETAMINOPHEN 500 MG TABLET PO SCH ×2 (10:13→20:27)
[2018-04-25] MEDS: CALCIUM CARBONATE 600 MG TABLET PO SCH (10:13)
[2018-04-25] MEDS: MELOXICAM 15 MG TABLET PO SCH (10:15)
[2018-04-25] MEDS: RIVASTIGMINE PATCH REMOVAL TD SCH (10:15)
[2018-04-25] MEDS: POLYETHYL GLYCOL 3350 17gm PACKET PO SCH (10:15)
[2018-04-25] MEDS: GABAPENTIN 100 MG CAPSULE PO SCH ×3 (10:17→20:27)
--- NOTE | 2018-04-25 15:09 | Pharmacy Consult-Antibiotics ---
Pharmacy Consult-Vancomycin - Laboratory Information WBC 4.4 T/MM3 (4.5-11.0) L 04/25/18 04:23 BUN 22.0 MG/DL (7-17) H 04/25/18 04:23 Creatinine 1.0 mg/dL (0.7-1.2) D 04/25/18 04:23 Procalcitonin < 0.05 NG/ML 04/24/18 18:18 - Consult Information VANCOMYCIN CONSULT: Dx: Cellulitis, Chronic ulceration Current Renal Function: S Cr = 1.0 mg/dl. Estimated Creatinine Clearance = 37 mL /min. WBC's = 4.4 Tmm3, 24-hr Tmax = 97.4 CHANDLER is 88 female who was started on doxycycline 100mg BID x 10 days on 04/07/18, due to concerns of cellulitis to her right lower extremity as well as for treatment of her chronic ulceration. She has been admitted to the hospital to further treat both items. I have ordered Vancomycin 1,250 mg IV q24hrs, which is estimated to give a trough of 15.15 mcg/mL. The Pharmacy will continue to monitor and adjust regimen to maintain therapeutic levels. Thanks, Elliott Welch [facility]
--- NOTE | 2018-04-25 15:20 | Progress Note ---
- Date 04/25/18 Subjective: Kita is seen today in follow up for cellulitis of RLE. Did review pictures from wound care on 04/17 and spoke with wound care staff. It appears that erythema has spread and is worse than it was 1 week ago despite PO Doxycycline. Today Kita states that her leg is feeling better and she feels that the swelling has improved. Denies abdominal pain or shortness of breath. Remains afebrile. Objective Vital signs: Temperature 96.4 F L 04/25/18 11:58 Pulse Rate 65 04/25/18 11:58 Respiratory Rate 14 04/25/18 14:19 Blood Pressure 142/75 H 04/25/18 11:58 Pulse Oximetry 99 04/25/18 14:19 Height/Weight/BMI: Height 1.65 m Weight 66.3 kg Body Mass Index 24.3 - Constitutional Present: no acute distress, well nourished, well developed - Routine HEENT Exam Eye: Present: EOMI ENT: Present: mucous membranes moist, dentition normal - Routine Respiratory Exam Present: CTA bilaterally. Absent: wheezes - Routine Cardiovascular Exam Present: RRR, S1, S2. Absent: murmur - Routine Abdominal Exam Present: soft, normoactive bowel sounds, non distended. Absent: tenderness - Routine Extremities Exam Comments: BLE trace edema, Erythema to RLE - Routine Back/Spine/Pelvis Exam Back/Spine: Present: full ROM - Routine Skin Exam Present: intact, dry, warm - Routine Neurological Exam Present: alert, CN II-XII intact - Routine Lymphatic Exam Lymphatic: Absent: adenopathy - Routine Psychiatric Exam Present: cooperative Results - Labs CBC & Chem 7: 04/25/18 04:23 04/25/18 04:23 Microbiology Results: Microbiology 04/24/18 18:18 Peripheral/Iv Start Blood Culture - Preliminary Culture Initiated - Results Pending 04/24/18 18:26 Peripheral/Iv Start Blood Culture - Preliminary Culture Initiated - Results Pending Assessment and Plan (1) Cellulitis and abscess of right lower extremity Current visit: Yes Status: Acute Assessment and Plan: Assessment Cellulitis to right lower extremity. Failed outpatient therapy with doxycycline from 04/07/18-04/17/18. Leukopenia (POA). Hyponatremia (POA). 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 S/P excision debridement of ulceration - Dr. Calvin, wound care clinic, . Hypothyroidism. Hyperlipidemia. Chronic kidney disease, stage III. Insomnia. Alzheimer's disease. Hypertension. Pulmonary hypertension. Chronic venous insufficiency. Degenerative disc disease. Chronic back pain. Cataracts. GERD. Constipation. Non-pressure ulceration to right lateral malleolus. Deconditioning. Lower extremity edema. Spinal stenosis. Major depressive disorder. Plan Given worsening erythema to right lower extremity, accompanied with failed outpatient treatment for 10 days, Will change patient status to inpatient. We will continue with IV vancomycin for antimicrobial coverage. I've asked nursing staff to place SANDY hose to bilateral lower extremity to help with compression. Consult placed to wound care for evaluation of edema and chronic wounds Prior culture and sensitivity of wound from 04/03/18 revealed coag negative staphylococcus with sensitivities to doxycycline, gent, linezolid, oxacillin, Bactrim and vancomycin. Preliminary blood cultures are pending, currently with no growth Venous Doppler Is negative for DVT. Consult PT and OT tomorrow to evaluate ambulation. Given lower extremity pain Continue to follow daily CBC and BMP to follow blood counts, renal function and electrolytes. DVT Prophylaxis: SCD's Resuscitation Status: Do Not Resuscitate - Time spent with patient Time with patient PN: 25 minutes - Physician Narrative Physician: Chaitanya Carrera MD Narrative: Date: 04/25/18 Time: 1753 Have independently interviewed & examined pt. Chart reviewed. Case discussed with CM & my TECHNICAL IMPLEMENTATION LEAD. Care plan developed with my supervision; agree with above. Doing fair. Does note continued swelling, redness, and discomfort to right lower ext. Not having f/c. Breathing stable-no cough, congestion, or pain with breathing. Denies chest pain. NO nausea or ab pain. Reports chronic constipation. Lungs: decreased, scattered crackles. No distress CV: regular EXT: +1 edema to right LE MSE: awake alert appropriate Plan: Will change admission status to inpatient for continued antibiotics for coverage of cellulitis failing outpatient treatment. Elevate LE. SANDY hose. Monitor lab. Hospital Course Summary Disclaimer: The visit summary below is not to be considered part of the above Progress Note. Hospital Course: 04/24/18 Admit patient to OBS status under the care of Dr. Woodward and hospitalist service for evaluation of right lower extremity cellulitis and initiation of IV antibiotics. Consult wound care team for continued treatment and close monitoring. Given failed outpatient treatment, patient may require inpatient hospitalization. Vitals stable on admission. Lab results pending. Labs obtained on admission - CBC, CMP, CRP, procalcitonin, lactate and blood cultures x 2 - results pending. Prior C/S of wound from 04/03/18 revealed coag negative staphylococcus with sensitivities to doxycycline, gent, linezolid, oxacillin, Bactrim and vancomycin. Recent failed treatment with doxycycline 04/07/18-04/17/18 prior to admission. Will initiate vancomycin Q12 hours for empiric treatment. No discharge from ulceration available to be cultured at this time. Treatment options limited due to patients extensive list of medication allergies. Will continue home medications once reconciled per nursing. Medications reviewed. Given increased swelling/edema with calf pain, will obtain Doppler ultrasound for evaluation of DVT. Consider imaging (ie. ankle x-ray and/or MRI) for further evaluation for osteomyelitis if CRP is elevated. Upon discharge, patient's care will be returned to her PCP, Dr. Carcamo. Patient and family request code status of DNR at time of admission. 04/25/18 Given worsening erythema to right lower extremity, accompanied with failed outpatient treatment for 10 days, Will change patient status to inpatient. We will continue with IV vancomycin for antimicrobial coverage. I've asked nursing staff to place SANDY hose to bilateral lower extremity to help with compression. Consult placed to wound care for evaluation of edema and chronic wounds. Prior C/S of wound from 04/03/18 revealed coag negative staphylococcus with sensitivities to doxycycline, gent, linezolid, oxacillin, Bactrim and vancomycin. Preliminary blood cultures are pending, currently with no growth. Venous Doppler Is negative for DVT. Consult PT and OT tomorrow to evaluate ambulation. Given lower extremity pain. Continue to follow daily CBC and BMP to follow blood counts, renal function and electrolytes.
[2018-04-25] MEDS: SIMVASTATIN 20 MG TABLET PO SCH (20:28)
[2018-04-26] MEDS: PANTOPRAZOLE 40 MG TABLET PO SCH (06:28)
[2018-04-26] MEDS: LEVOTHYROXINE 50 MCG TABLET PO SCH (06:28)
[2018-04-26] MEDS: GABAPENTIN 100 MG CAPSULE PO SCH ×3 (09:19→21:01)
[2018-04-26] MEDS: HCTZ PO SCH ×2 (09:19→21:01)
[2018-04-26] MEDS: CALCIUM CARBONATE 600 MG TABLET PO SCH (09:19)
[2018-04-26] MEDS: LOSARTAN PO SCH ×2 (09:19→21:01)
[2018-04-26] MEDS: COENZYME Q-10 200mg TABLET PO SCH (09:19)
[2018-04-26] MEDS: POLYETHYL GLYCOL 3350 17gm PACKET PO SCH (09:20)
[2018-04-26] MEDS: RIVASTIGMINE 9.5 MG/24 HR PATCH TD SCH (09:20)
[2018-04-26] MEDS: ACETAMINOPHEN 500 MG TABLET PO SCH ×3 (09:25→21:01)
[2018-04-26] MEDS: MELOXICAM 15 MG TABLET PO SCH (09:38)
--- NOTE | 2018-04-26 10:48 | Progress Note ---
- Date 04/26/18 Subjective: Kita is seen today in follow up. She is resting in bed with her feet elevated. She has sandy hose to BLE and she feels that swelling continues to improve. She reports that the only time she has significant pain is when she weightbearing on right foot. Otherwise she is feeling good, denies shortness of breath. Appetite is good. Objective Vital signs: Temperature 97.3 F 04/25/18 23:58 Pulse Rate 65 04/26/18 07:38 Respiratory Rate 16 04/26/18 07:38 Blood Pressure 141/64 H 04/26/18 07:38 Pulse Oximetry 93 04/26/18 07:38 Height/Weight/BMI: Height 1.65 m Weight 66.3 kg Body Mass Index 24.3 - Constitutional Present: no acute distress, well nourished, well developed - Routine HEENT Exam Eye: Present: EOMI ENT: Present: mucous membranes moist, dentition normal - Routine Respiratory Exam Present: CTA bilaterally. Absent: wheezes - Routine Cardiovascular Exam Present: RRR, S1, S2. Absent: murmur - Routine Abdominal Exam Present: soft, normoactive bowel sounds, non distended. Absent: tenderness - Routine Extremities Exam Comments: Edema improved to bilateral lower ext - Routine Skin Exam Present: intact, dry, warm - Routine Neurological Exam Present: alert, CN II-XII intact - Routine Lymphatic Exam Lymphatic: Absent: adenopathy - Routine Psychiatric Exam Present: normal affect, cooperative Results - Labs CBC & Chem 7: 04/26/18 04:37 04/26/18 04:37 Microbiology Results: Microbiology 04/24/18 18:18 Peripheral/Iv Start Blood Culture - Preliminary No Growth After 1 Day 04/24/18 18:26 Peripheral/Iv Start Blood Culture - Preliminary No Growth After 1 Day Assessment and Plan (1) Cellulitis and abscess of right lower extremity Current visit: Yes Status: Acute Assessment and Plan: Assessment Cellulitis to right lower extremity. Failed outpatient therapy with doxycycline from 04/07/18-04/17/18. Leukopenia (POA). Hyponatremia (POA). 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 S/P excision debridement of ulceration - Dr. Calvin, wound care clinic, . Hypothyroidism. Hyperlipidemia. Chronic kidney disease, stage III. Insomnia. Alzheimer's disease. Hypertension. Pulmonary hypertension. Chronic venous insufficiency. Degenerative disc disease. Chronic back pain. Cataracts. GERD. Constipation. Non-pressure ulceration to right lateral malleolus. Deconditioning. Lower extremity edema. Spinal stenosis. Major depressive disorder. Plan We will continue with IV vancomycin for antimicrobial coverage. SANDY hose to bilateral lower extremity to help with compression. Wound team following patient Increase scheduled Tylenol to 1000mg TID for foot pain control Persistent Hyponatremia- Likely chronic past reviewed 130-132. Continue to follow daily CBC and BMP to follow blood counts, renal function and electrolytes. DVT Prophylaxis: SCD's Resuscitation Status: Do Not Resuscitate - Time spent with patient Time with patient PN: 25 minutes - Physician Narrative Physician: Chaitanya Carrera MD Narrative: Date: 04/26/18 Time: 1536 Have independently interviewed and examined pt. Chart reviewed. Case discussed with my PRACTICE MANAGER. Care plan developed with my supervision; agree with above. Doing about the same. Notes discomfort to right leg which varies-can be hard to sleep well due to the pain. Redness with little change. Swelling decreased with SANDY hose. No f/c. Breathing well. No chest pain. Eating well. Denies ab pain or nausea. Lungs: decreased, no distress CV: regular AB: soft nt +BS Ext: decreased RLE edema, erythema with little change MSE: awake alert appropriate Plan: Will continue vancomycin for coverage. Serum sodium gradually trending down-will give NS at 75cc/hr for 1L. Continue SANDY hose for compression. Monitor lab. Hospital Course Summary Disclaimer: The visit summary below is not to be considered part of the above Progress Note. Hospital Course: 04/24/18 Admit patient to OBS status under the care of Dr. Woodward and hospitalist service for evaluation of right lower extremity cellulitis and initiation of IV antibiotics. Consult wound care team for continued treatment and close monitoring. Given failed outpatient treatment, patient may require inpatient hospitalization. Vitals stable on admission. Lab results pending. Labs obtained on admission - CBC, CMP, CRP, procalcitonin, lactate and blood cultures x 2 - results pending. Prior C/S of wound from 04/03/18 revealed coag negative staphylococcus with sensitivities to doxycycline, gent, linezolid, oxacillin, Bactrim and vancomycin. Recent failed treatment with doxycycline 04/07/18-04/17/18 prior to admission. Will initiate vancomycin Q12 hours for empiric treatment. No discharge from ulceration available to be cultured at this time. Treatment options limited due to patients extensive list of medication allergies. Will continue home medications once reconciled per nursing. Medications reviewed. Given increased swelling/edema with calf pain, will obtain Doppler ultrasound for evaluation of DVT. Consider imaging (ie. ankle x-ray and/or MRI) for further evaluation for osteomyelitis if CRP is elevated. Upon discharge, patient's care will be returned to her PCP, Dr. Carcamo. Patient and family request code status of DNR at time of admission. 04/25/18 Given worsening erythema to right lower extremity, accompanied with failed outpatient treatment for 10 days, Will change patient status to inpatient. We will continue with IV vancomycin for antimicrobial coverage. I've asked nursing staff to place SANDY hose to bilateral lower extremity to help with compression. Consult placed to wound care for evaluation of edema and chronic wounds. Prior C/S of wound from 04/03/18 revealed coag negative staphylococcus with sensitivities to doxycycline, gent, linezolid, oxacillin, Bactrim and vancomycin. Preliminary blood cultures are pending, currently with no growth. Venous Doppler Is negative for DVT. Consult PT and OT tomorrow to evaluate ambulation. Given lower extremity pain. Continue to follow daily CBC and BMP to follow blood counts, renal function and electrolytes. 04/26/18 We will continue with IV vancomycin for antimicrobial coverage. SANDY hose to bilateral lower extremity to help with compression. Wound team following patient. Increase scheduled Tylenol to 1000mg TID for foot pain control Persistent Hyponatremia- Likely chronic past reviewed 130-132. Will give 1L NS at 75cc/hr.
[2018-04-26] MEDS: [UNRECOGNIZED DRUG - OTHER] PO SCH ×4 (11:35→21:01)
[2018-04-26] MEDS: QUININE SULFATE 324 MG PO SCH ×3 (11:36→21:03)
[2018-04-26] MEDS: RIVASTIGMINE PATCH REMOVAL TD SCH (11:38)
[2018-04-26] MEDS ORDERED: NS 1,000 ML IV SCH (15:45)
[2018-04-26] MEDS: SIMVASTATIN 20 MG TABLET PO SCH (21:01)
[2018-04-27] MEDS: LEVOTHYROXINE 50 MCG TABLET PO SCH (06:22)
[2018-04-27] MEDS: PANTOPRAZOLE 40 MG TABLET PO SCH (06:22)
[2018-04-27] MEDS: ACETAMINOPHEN 500 MG TABLET PO SCH ×3 (09:09→23:58)
[2018-04-27] MEDS: CALCIUM CARBONATE 600 MG TABLET PO SCH (09:12)
[2018-04-27] MEDS: HCTZ PO SCH (09:13)
[2018-04-27] MEDS: [UNRECOGNIZED DRUG - OTHER] PO SCH ×2 (09:13→23:59)
[2018-04-27] MEDS: LOSARTAN PO SCH (09:13)
[2018-04-27] MEDS: MELOXICAM 15 MG TABLET PO SCH (09:13)
[2018-04-27] MEDS: GABAPENTIN 100 MG CAPSULE PO SCH ×3 (09:13→23:59)
[2018-04-27] MEDS: COENZYME Q-10 200mg TABLET PO SCH (09:13)
[2018-04-27] MEDS: RIVASTIGMINE 9.5 MG/24 HR PATCH TD SCH (09:14)
[2018-04-27] MEDS: POLYETHYL GLYCOL 3350 17gm PACKET PO SCH (09:14)
[2018-04-27] MEDS: RIVASTIGMINE PATCH REMOVAL TD SCH (09:16)
--- NOTE | 2018-04-27 13:14 | Progress Note ---
- Date 04/27/18 Subjective: Kita is seen today in follow up. She reports feeling quite a lot better. Still has pain, mostly when walking. Feels that her legs have returned to normal in regards to edema. Denies any other pain. Is excited to have visitors later today. Objective Vital signs: Temperature 97.6 F 04/27/18 12:00 Pulse Rate 63 04/27/18 12:00 Respiratory Rate 16 04/27/18 12:00 Blood Pressure 147/69 H 04/27/18 12:00 Pulse Oximetry 100 04/27/18 12:00 Height/Weight/BMI: Height 1.65 m Weight 66.6 kg Body Mass Index 24.3 - Constitutional Present: no acute distress, average body habitus, cooperative - Routine HEENT Exam Head: Present: normocephalic, atraumatic Eye: Present: EOMI, PERRL ENT: Present: mucous membranes moist - Routine Respiratory Exam Present: CTA bilaterally. Absent: rales, rhonchi, crackles - Routine Cardiovascular Exam Present: RRR, S1, S2, no murmur - Routine Abdominal Exam Present: soft, normoactive bowel sounds, non distended, non tender - Routine Extremities Exam Present: no edema, pulses intact Comments: Exam is a bit limited due to bilateral SANDY hose in place. No visible redness or edema. No abnormal warmth. - Routine Musculoskeletal Exam Musculoskeletal: Present: normal strength, moving extremities well - Routine Skin Exam Present: intact, dry, warm - Routine Neurological Exam Present: alert, moving all extremities - Routine Psychiatric Exam Present: cooperative Results - Labs CBC & Chem 7: 04/27/18 06:14 04/27/18 06:14 Microbiology Results: Microbiology 04/24/18 18:26 Peripheral/Iv Start Blood Culture - Preliminary No Growth After 2 Days 04/24/18 18:18 Peripheral/Iv Start Blood Culture - Preliminary No Growth After 2 Days Assessment and Plan (1) Cellulitis and abscess of right lower extremity Current visit: Yes Status: Acute Assessment and Plan: Assessment Cellulitis to right lower extremity. Failed outpatient therapy with doxycycline from 04/07/18-04/17/18. Leukopenia (POA). Hyponatremia (POA). 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 S/P excision debridement of ulceration - Dr. Calvin, wound care clinic, . Hypothyroidism. Hyperlipidemia. Chronic kidney disease, stage III. Insomnia. Alzheimer's disease. Hypertension. Pulmonary hypertension. Chronic venous insufficiency. Degenerative disc disease. Chronic back pain. Cataracts. GERD. Constipation. Non-pressure ulceration to right lateral malleolus. Deconditioning. Lower extremity edema. Spinal stenosis. Major depressive disorder. Plan 04/27/18 Doing very well overall. Continue IV vanco for now D #3. Home on Zyvox? Failed doxycycline. Sodium remains low- Change Hyzaar to Losartan, increase dose to 100mg. (DC HCTZ). Repeat labs in AM. PT/OT to evaluate. Home soon? DC planning in AM. Lives at [facility]- could consider SNU for ongoing IV abx if needed. DVT Prophylaxis: SCD's GI Prophylaxis: Protonix Resuscitation Status: Do Not Resuscitate - Time spent with patient Time with patient PN: 25 minutes - Physician Narrative Physician: Chaitanya Carrera MD Narrative: Date: 04/27/18 Time: 1735 Have independently interviewed and examined pt. Chart reviewed. Case discussed with my ETL SOFTWARE ENGINEER. Care plan developed with my supervision; agree with above. Doing about the same. Still with discomfort to right leg, more pronounced when trying to walk. No f/c. Breathing well. Eating well. Lungs: decreased, no distress CV: regular AB: soft nt/nd EXT: slight decrease in area or erythema to leg MSE: awake alert Plan: Continue with antibiotics and supportive care. Will consult PT/OT to tomorrow due to gait instability. Hospital Course Summary Disclaimer: The visit summary below is not to be considered part of the above Progress Note. Hospital Course: 04/24/18 Admit patient to OBS status under the care of Dr. Woodward and hospitalist service for evaluation of right lower extremity cellulitis and initiation of IV antibiotics. Consult wound care team for continued treatment and close monitoring. Given failed outpatient treatment, patient may require inpatient hospitalization. Vitals stable on admission. Lab results pending. Labs obtained on admission - CBC, CMP, CRP, procalcitonin, lactate and blood cultures x 2 - results pending. Prior C/S of wound from 04/03/18 revealed coag negative staphylococcus with sensitivities to doxycycline, gent, linezolid, oxacillin, Bactrim and vancomycin. Recent failed treatment with doxycycline 04/07/18-04/17/18 prior to admission. Will initiate vancomycin Q12 hours for empiric treatment. No discharge from ulceration available to be cultured at this time. Treatment options limited due to patients extensive list of medication allergies. Will continue home medications once reconciled per nursing. Medications reviewed. Given increased swelling/edema with calf pain, will obtain Doppler ultrasound for evaluation of DVT. Consider imaging (ie. ankle x-ray and/or MRI) for further evaluation for osteomyelitis if CRP is elevated. Upon discharge, patient's care will be returned to her PCP, Dr. Carcamo. Patient and family request code status of DNR at time of admission. 04/25/18 Given worsening erythema to right lower extremity, accompanied with failed outpatient treatment for 10 days, Will change patient status to inpatient. We will continue with IV vancomycin for antimicrobial coverage. I've asked nursing staff to place SANDY hose to bilateral lower extremity to help with compression. Consult placed to wound care for evaluation of edema and chronic wounds. Prior C/S of wound from 04/03/18 revealed coag negative staphylococcus with sensitivities to doxycycline, gent, linezolid, oxacillin, Bactrim and vancomycin. Preliminary blood cultures are pending, currently with no growth. Venous Doppler Is negative for DVT. Consult PT and OT tomorrow to evaluate ambulation. Given lower extremity pain. Continue to follow daily CBC and BMP to follow blood counts, renal function and electrolytes. 04/26/18 We will continue with IV vancomycin for antimicrobial coverage. SANDY hose to bilateral lower extremity to help with compression. Wound team following patient. Increase scheduled Tylenol to 1000mg TID for foot pain control Persistent Hyponatremia- Likely chronic past reviewed 130-132. Will give 1L NS at 75cc/hr. 04/27/18 Doing very well overall. Continue IV vanco for now D #3. Home on Zyvox? Failed doxycycline. Sodium remains low- Change Hyzaar to Losartan, increase dose to 100mg. (DC HCTZ). Repeat labs in AM. PT/OT to evaluate. Home soon? DC planning in AM.
[2018-04-27] MEDS: QUININE SULFATE 324 MG PO SCH (23:46)
[2018-04-27] MEDS: SIMVASTATIN 20 MG TABLET PO SCH (23:59)
[2018-04-28] MEDS ORDERED: VANCOMYCIN 1,500 MG in NS 500 ML IV SCH (06:00)
[2018-04-28] MEDS: PANTOPRAZOLE 40 MG TABLET PO SCH (06:24)
[2018-04-28] MEDS: LEVOTHYROXINE 50 MCG TABLET PO SCH (06:24)
[2018-04-28 07:30] VITALS: RESP 16; O2SAT 98
[2018-04-28] MEDS ORDERED: LOSARTAN 100 MG TABLET PO SCH (09:00)
[2018-04-28] MEDS: POLYETHYL GLYCOL 3350 17gm PACKET PO SCH (09:03)
[2018-04-28] MEDS: COENZYME Q-10 200mg TABLET PO SCH (09:06)
[2018-04-28] MEDS: CALCIUM CARBONATE 600 MG TABLET PO SCH (09:06)
[2018-04-28] MEDS: ACETAMINOPHEN 500 MG TABLET PO SCH ×2 (09:07→15:36)
[2018-04-28] MEDS: GABAPENTIN 100 MG CAPSULE PO SCH ×2 (09:07→15:35)
[2018-04-28] MEDS: RIVASTIGMINE PATCH REMOVAL TD SCH (09:07)
[2018-04-28] MEDS: [UNRECOGNIZED DRUG - OTHER] PO SCH (09:08)
[2018-04-28] MEDS: MELOXICAM 15 MG TABLET PO SCH (09:09)
[2018-04-28] MEDS: RIVASTIGMINE 9.5 MG/24 HR PATCH TD SCH (09:09)
--- NOTE | 2018-04-28 11:44 | Progress Note ---
- Date 04/28/18 Subjective: Kita reports that her left leg has improved quite a bit but her right leg is still sore, especially when she gets up. It doesn't really hurt to palpate or touch. She denies any SOA or chest pain, abd pain or n/v. Her bowels are moving. She doesn't care for her diet restrictions here. She c/o more pain stemming from her lower back and going into both legs. Objective Vital signs: Temperature 96.7 F L 04/28/18 07:29 Pulse Rate 60 04/28/18 07:29 Respiratory Rate 16 04/28/18 07:29 Blood Pressure 148/67 H 04/28/18 07:29 Pulse Oximetry 98 04/28/18 07:29 Height/Weight/BMI: Height 1.65 m Weight 68.1 kg Body Mass Index 24.3 - Constitutional Present: no acute distress, well nourished, well developed - Routine HEENT Exam Head: Present: normocephalic Eye: Present: PERRL. Absent: conjunctival icterus, scleral injection ENT: Present: oropharynx clear - Routine Respiratory Exam Present: CTA bilaterally - Routine Cardiovascular Exam Present: RRR, S1, S2 - Routine Abdominal Exam Present: soft, normoactive bowel sounds, non distended, non tender - Routine Extremities Exam Present: edema (1+ RLE; trace LLE) - Routine Skin Exam Present: intact, erythema (BLE, R>L.), dry, warm - Routine Neurological Exam Present: alert, oriented X3, CN II-XII intact, moving all extremities, normal speech - Routine Psychiatric Exam Present: normal affect, normal thought process, cooperative Results - Labs CBC & Chem 7: 04/28/18 04:22 04/28/18 04:22 Microbiology Results: Microbiology 04/24/18 18:26 Peripheral/Iv Start Blood Culture - Preliminary No Growth After 3 Days 04/24/18 18:18 Peripheral/Iv Start Blood Culture - Preliminary No Growth After 3 Days Assessment and Plan (1) Cellulitis and abscess of right lower extremity Current visit: Yes Status: Acute Assessment and Plan: Assessment Cellulitis to right lower extremity. Failed outpatient therapy with doxycycline from 04/07/18-04/17/18. Leukopenia (POA). Hyponatremia (POA). 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 S/P excision debridement of ulceration - Dr. Calvin, wound care clinic, . Hypothyroidism. Hyperlipidemia. Chronic kidney disease, stage III. Insomnia. Alzheimer's disease. Hypertension. Pulmonary hypertension. Chronic venous insufficiency. Degenerative disc disease. Chronic back pain. Cataracts. GERD. Constipation. Non-pressure ulceration to right lateral malleolus. Deconditioning. Lower extremity edema. Spinal stenosis. Major depressive disorder. Plan 04/28/18 Continue IV vanco for now D #4. Poss home on Zyvox. WBC 3.9 Na still 130 - Hyzaar changed to Losartan yesterday to eliminate thiazide component; and dose increased to 100 mg. PT/OT eval pending. Poss dc soon. D/W Dr. Carrera. Resuscitation Status: Do Not Resuscitate - Physician Narrative Physician: Chaitanya Carrera MD Narrative: Date: 04/28/18 Time: 1425 Have independently interviewed and examined pt. Chart reviewed. Case discussed with CM and my APNR. Care plan developed with my supervision; agree with above. Doing about the same. Still notes some mild swelling to RLE. Pain varied-still uncomfortable to walk on right leg. No f/c. Breathing well. Eating well. No ab pain. Lungs: decreased, no distress CV: regular AB: soft nt/nd EXT: Continued decrease of erythema to RLE MSE: awake alert appropriate Plan: Medically stable for discharge to [facility] for skilled care. Will continue prior doxycycline. SANDY hose and elevation to help decrease erythema and swelling. Continue to follow in wound clinic - apt on 05/01. F/U with Dr Carcamo in 1 week. See orders for details. Hospital Course Summary Disclaimer: The visit summary below is not to be considered part of the above Progress Note. Hospital Course: 04/24/18 Admit patient to OBS status under the care of Dr. Woodward and hospitalist service for evaluation of right lower extremity cellulitis and initiation of IV antibiotics. Consult wound care team for continued treatment and close monitoring. Given failed outpatient treatment, patient may require inpatient hospitalization. Vitals stable on admission. Lab results pending. Prior C/S of wound from 04/03/18 revealed coag negative staphylococcus with sensitivities to doxycycline, gent, linezolid, oxacillin, Bactrim and vancomycin. Recent failed treatment with doxycycline 04/07/18-04/17/18 prior to admission. Will initiate vancomycin Q12 hours for empiric treatment. No discharge from ulceration available to be cultured at this time. Treatment options limited due to patients extensive list of medication allergies. Given increased swelling/edema with calf pain, will obtain Doppler ultrasound for evaluation of DVT. Patient and family request code status of DNR at time of admission. 04/25/18 Given worsening erythema to right lower extremity, accompanied with failed outpatient treatment for 10 days, Will change patient status to inpatient. We will continue with IV vancomycin for antimicrobial coverage. SANDY hose to bilateral lower extremity to help with compression. Preliminary blood cultures are pending, currently with no growth. Venous Doppler is negative for DVT. 04/26/18 We will continue with IV vancomycin for antimicrobial coverage. Wound team following patient. Increase scheduled Tylenol to 1000mg TID for foot pain control Persistent Hyponatremia- Likely chronic past reviewed 130-132. Will give 1L NS at 75cc/hr. 04/27/18 Doing very well overall. Continue IV vanco for now Day #4. Home on Zyvox? Failed doxycycline. Sodium remains low- Change Hyzaar to Losartan, increase dose to 100mg. (DC HCTZ ). 04/28/18 Continue IV vanco for now Day #5. Na still 130 - Hyzaar changed to Losartan yesterday to eliminate thiazide component; and dose increased to 100 mg. Medically stable for discharge to [facility] for skilled care. Will continue prior doxycycline - possible linezolid if not showing improvements. SANDY hose and elevation to help decrease erythema and swelling. Continue to follow in wound clinic - apt on 05/01. F/U with Dr Carcamo in 1 week. BMP in 1 week secondary to medication use. See orders for details.
[2018-04-28 11:52] VITALS: PULSE 66
--- NOTE | 2018-04-28 14:38 | Extended Care Facility Orders ---
Admission Orders Admit to:: Detention Allergies/Adverse Reactions: Allergies bacitracin Allergy (Unknown, Verified 04/24/18 17:18) RASH, ITCHING dextrose Allergy (Unknown, Verified 04/24/18 17:18) gramicidin D Allergy (Unknown, Verified 04/24/18 17:18) RASH, ITCHING hydrocodone Allergy (Unknown, Verified 04/24/18 17:18) neomycin Allergy (Unknown, Verified 04/24/18 17:18) RASH, ITCHING Penicillins Allergy (Unknown, Verified 04/24/18 17:18) HIVES polymyxin B Allergy (Unknown, Verified 04/24/18 17:18) RASH, ITCHING cephalexin Adverse Reaction (Unknown, Verified 04/24/18 17:18) YEAST INFECTION codeine Adverse Reaction (Unknown, Verified 04/24/18 17:18) NAUSEA, DIZZINESS lincomycin Adverse Reaction (Unknown, Verified 04/24/18 17:18) COLITIS moxifloxacin Adverse Reaction (Unknown, Verified 04/24/18 17:39) DIZZINESS, NAUSEA Sulfa (Sulfonamide Antibiotics) Adverse Reaction (Unknown, Verified 04/24/18 17: 39) DIZZINESS Soy Adverse Reaction (Unknown, Uncoded 04/24/18 17:39) SORE MOUTH Admitting Diagnosis: Worsening erythema, cellulitis to lower extremity Admitting Physician: Chaitanya Carrera MD Attending Physician: Dr Carcamo Code Status: Do Not Resuscitate Anticiapted Length of Stay: 30 days or less Rehab Potential: fair Rehab Prognosis: fair Diet: No added salt diet Wound/Incision Care: Continue prior wound care orders from Wound Clinic. May use Facility Protocol or Standing Orders: Yes May have flu vaccine: Yes Evaluations/Treatment: PT (Gait instability), OT (Gait instability) Detention Certification: I certify that SNF services are required to be given on an Inpatient basis because of the patients need for snf care on a continuing basis for the condition(s) for which he/she received inpatient hospital services prior to his/her transfer to the SNF. SNF inpatient care is necessary for the following reasons Indication for Detention: Wound Care/Assessment, Med Admininistration, Other (Skilled PT/OT to maximize functional status.) - Additional Information In Event of Arrest: Do Not Start CPR Resident is Aware of Diagnosis: Yes Referrals: Lexie Carcamo MD [Primary Care Provider] - 1 Week (Hospital follow up - right leg cellulitis. ) Shoshana Last MD [Physician] - (Wound Clinic apt on 05/01) Additional Orders: BMP in 1 week - Dx: medication use. Results of BMP to Dr Carcamo. IS QID for 1 week. SANDY hose to lower ext to help decrease edema. Elevate lower ext when at rest.
[2018-04-28 15:07] VITALS: BP 150/64; TEMP 97
--- NOTE | 2018-04-28 16:44 | Discharge Summary ---
Discharge Information Date of admission: 04/25/18 14:07 Anticipated date of discharge: 04/28/18 Attending Physician: Chaitanya Carrera MD Primary care physician: Lexie Carcamo MD Consults: Wound Vein Clinic Consult [CONS] Routine Reason for consultation: non-healing ulceration - Discharge Diagnosis (1) Cellulitis and abscess of right lower extremity Status: Acute Discharge diagnosis Cellulitis to right lower extremity. Failed outpatient therapy with doxycycline from 04/07/18-04/17/18. Associated conditions and complications Leukopenia (POA). Hyponatremia (POA). 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 S/P excision debridement of ulceration - Dr. Calvin, wound care clinic, . Hypothyroidism. Hyperlipidemia. Chronic kidney disease, stage III. Insomnia. Alzheimer's disease. Hypertension. Pulmonary hypertension. Chronic venous insufficiency. Degenerative disc disease. Chronic back pain. Cataracts. GERD. Constipation. Non-pressure ulceration to right lateral malleolus. Deconditioning. Lower extremity edema. Spinal stenosis. Major depressive disorder. - Laboratory Labs: Admit Lab 04/24/18 18:18 WBC 4.4 L Hgb 14.2 Hct 41.1 MCV 99.5 Plt Count 246 Neut % (Auto) 77.6 H Lymph % (Auto) 8.6 L Piute % (Auto) 9.3 H Eos % (Auto) 4.3 H Baso % (Auto) 0.2 Admit Lab 04/24/18 04/24/18 18:18 18:18 Sodium 134 L Potassium 4.5 Chloride 93 L Carbon Dioxide 27 Anion Gap 14 BUN 20.0 H Creatinine 1.2 GFR Calculation 42 BUN/Creatinine Ratio 17 Glucose 99 Hemoglobin A1c 5.3 Calculated Osmolality 261 Calcium 9.9 Total Bilirubin 0.50 AST 36 ALT 16 Alkaline Phosphatase 95 C-Reactive Protein < 5.0 Total Protein 8.3 H Albumin 4.7 Globulin 3.6 Albumin/Globulin Ratio 1.3 Plasma Lactate 0.9 Procalcitonin < 0.05 04/28/18 04:22 04/28/18 04:22 - Microbiology Microbiology 04/24/18 18:26 Peripheral/Iv Start Blood Culture - Preliminary No Growth After 3 Days 04/24/18 18:18 Peripheral/Iv Start Blood Culture - Preliminary No Growth After 3 Days - Radiology Radiology: Date of Exam: 04/25/18 Type of Exam: US venous Doppler LE RT Findings: There is no evidence for acute deep venous thrombosis in the right thigh. Specifically, serial graded compression was performed from the inguinal ligament to the popliteal bifurcation, on the right thigh, demonstrating appropriate compressibility of the deep venous system. In addition, color and pulsed Doppler demonstrate appropriate spontaneous flow, variation with respiration, and augmentation with calf compression. At the ankle, normal flow is identified in the posterior tibial veins; these vessels are also normal in caliber. Impression: No evidence of acute DVT in the right lower limb. History of Present Illness HPI: Kita Mccartney is a very pleasant 88-year-old female patient of Dr. Carcamo who current resides at [facility]. She recently began seeing Dr. Calvin at the [facility] wound care clinic for treatment of a chronic right lateral malleolus non-pressure ulceration which she reports has been present since September 2017. On 04/07/18 she was started on doxycycline 100mg BID x 10 days due to concerns of cellulitis to her right lower extremity as well as for treatment of her chronic ulceration. She was last seen by Dr. Calvin on at which time she underwent an excisional debridement of the subcutaneous tissue of the right lateral malleolus. Procedures notes from that time indicated that the ulceration following debridement measured 0.2cm x 0.2cm x 0.1cm and showed no signs of infection, though persistent erythema and 2+ pitting edema were noted. A mepilex dressing with Aquacel was placed and she was encouraged to elevate her right leg as much as possible as well as to wear tensoshape stockings due to her increased edema. She reports that since that time, the erythema to her right lower leg has progressively gotten worse, extending further up her leg. She also complains of persistent pain to her right lower leg especially with tough and movement. She denies any recent fevers , chill, chest pain, shortness of breath, abdominal pain, nausea, vomiting, diarrhea or other complaints or concerns. Due to the worsening redness, Kita presented to Dr. Carcamo's clinic today for further evaluation. Due to the reported worsening of the erythema despite recent antibiotic treatment, Dr. Carcamo contacted Dr. Woodward and Kita was directly admitted to [facility] observation status for further evaluation and IV antibiotic treatment. On exam, Kita is seen immediately upon arrival with her son, Alexander, present who contributes to the history. Prior medical records, assisted records and nursing notes also contributed to the medical history. For complete details of the H&P refer to that document. Objective Vital signs: Temperature 97.0 F 04/28/18 15:00 Pulse Rate 66 04/28/18 15:00 Respiratory Rate 16 04/28/18 15:00 Blood Pressure 150/64 H 04/28/18 15:00 Pulse Oximetry 98 04/28/18 15:00 Height/Weight/BMI: Height 1.65 m Weight 68.1 kg Body Mass Index 24.3 Hospital Course This is a general summary of the patient's hospital course. For more details refer to the complete medical record. Hospital course: 04/24/18 Admit patient to OBS status under the care of Dr. Woodward and hospitalist service for evaluation of right lower extremity cellulitis and initiation of IV antibiotics. Consult wound care team for continued treatment and close monitoring. Given failed outpatient treatment, patient may require inpatient hospitalization. Vitals stable on admission. Lab results pending. Prior C/S of wound from 04/03/18 revealed coag negative staphylococcus with sensitivities to doxycycline, gent, linezolid, oxacillin, Bactrim and vancomycin. Recent failed treatment with doxycycline 04/07/18-04/17/18 prior to admission. Will initiate vancomycin Q12 hours for empiric treatment. No discharge from ulceration available to be cultured at this time. Treatment options limited due to patients extensive list of medication allergies. Given increased swelling/edema with calf pain, will obtain Doppler ultrasound for evaluation of DVT. Patient and family request code status of DNR at time of admission. 04/25/18 Given worsening erythema to right lower extremity, accompanied with failed outpatient treatment for 10 days, Will change patient status to inpatient. We will continue with IV vancomycin for antimicrobial coverage. SANDY hose to bilateral lower extremity to help with compression. Preliminary blood cultures are pending, currently with no growth. Venous Doppler is negative for DVT. 04/26/18 We will continue with IV vancomycin for antimicrobial coverage. Wound team following patient. Increase scheduled Tylenol to 1000mg TID for foot pain control Persistent Hyponatremia- Likely chronic past reviewed 130-132. Will give 1L NS at 75cc/hr. 04/27/18 Doing very well overall. Continue IV vanco for now Day #4. Home on Zyvox? Failed doxycycline. Sodium remains low- Change Hyzaar to Losartan, increase dose to 100mg. (DC HCTZ ). 04/28/18 Day 5 of Vancomycin Na still 130 - Hyzaar changed to Losartan yesterday to eliminate thiazide component; and dose increased to 100 mg. Medically stable for discharge to [facility] for skilled care. Will continue doxycycline 100mg orally twice a day for 10 days - possible linezolid if not showing improvements. SANDY hose and elevation to help decrease erythema and swelling. Continue to follow in wound clinic - apt on 05/01. F/U with Dr Carcamo in 1 week. BMP in 1 week secondary to medication use. See orders for details. Time spent with patient: discharge greater than 30 minutes Resuscitation Status: Do Not Resuscitate Discharge Plan - Discharge Disposition Discharge Date: 04/28/18 Disposition: 03 To SNU Not MIC ([facility]) *Condition: Stable Reason For Visit (Visit label in EMR): Worsening erythema, cllulitis to lower extremity - Discharge Medications *Discharge Medications: New Acetaminophen [Tylenol] 1,000 mg PO TID tab Doxycycline [Vibramycin] 100 mg PO BID #20 tab Losartan [Cozaar] 100 mg PO DAILY tab Continue Levothyroxine Tab [Synthroid] 50 mcg PO ACB #0 Gabapentin [Neurontin] 100 mg PO TID Ginkgo Biloba 120 mg PO DAILY Rivastigmine Patch [Exelon Patch] 9.5 mg TD DAILY Silver Lozenges 1 lozenge PO Q4H PRN PRN Reason: Sore Throat Silver Immune Supplement 2 tsp PO DAILY PRN PRN Reason: Sore Throat quiNINE sulfate [Quinine Sulfate] 324 mg PO HS Peg 3350 238 G Bottle [Miralax] 8.5 - 17 gm PO DAILY PRN PRN Reason: Constipation Alpha Lipoic Acid 200 mg PO BID Colon Herbal Cleanser 2 cap PO BID Ubidecarenone/Vit E Acet [Co Q-10 100 mg Softgel] 200 mg PO DAILY Multivit with Iron-Minerals [Centravites 50 Plus] 1 each PO DAILY Cholecalciferol [Vit. D-3] 1 tab PO DAILY Calcium Carbonate 1,200 mg PO DAILY Simvastatin [Zocor] 20 mg PO HS Meloxicam 15 mg PO DAILY [place] Xl 2 tab PO DAILY Arginine [l-Arginine] 500 mg PO DAILY Pantoprazole Sodium [Protonix] 40 mg PO DAILY Discontinued Losartan/Hctz 50/12.5 [Hyzaar 50/12.5] 1 tab PO BID Acetaminophen [Acetaminophen Extra Strength] 1,000 mg PO BID - Discharge Packet/Instructions *Diet: No added salt *Activity: As tolerated, waker for assistance *Pain Management/Treatment: Tylenol for pain. *Wound Care: Continue prior wound care orders from Wound Clinic. *Expected Signs/Symptoms: Improvement of leg pain and redness. *Notify Physician if: Temp >100.4. Intractable diarrhea. *During Business Hours Contact: Nursing staff at [facility] *After Business Hours Contact: Nursing staff at [facility] *Pending Lab/Results: No Pending Lab - Referrals/Follow Up *Referrals/Follow Up: Lexie Carcamo MD [Primary Care Provider] - 1 Week (Hospital follow up - right leg cellulitis. ) Shoshana Last MD [Physician] - (Wound Clinic apt on 05/01) - Patient Handouts - Dismissal Complete Discharge Instructions are:: Complete Physician Narrative - Narrative Physician: Chaitanya Carrera MD Attestation Narrative: Date: 04/28/18 Time: 164 I have independently interviewed and examined patient prior to discharge. See my progress note for details. Medically stable for discharge.
== END 2018-04-28 16:25 | DRG 603 ==
LOC: MED → SUATTDRO 17:14
PROVIDERS: ADMIT Internal Medicine; ATTEND Hospitalist